=== PATIENT | male | born 1955 | race Caucasian/White ===

== ENCOUNTER 2017-01-30 22:23 | Inpatient (IN) | payer OTHER ==
[~2017-01-30] VITALS: Ht 172.7 cm; Wt 69.0 kg
[2017-01-30 22:25] VITALS: BP 172/143; PULSE 138; RESP 31; O2SAT 100
[2017-01-30] MEDS ORDERED: Albuterol 2.5 mg/3 mL Inhalation Solution NEB ONE ×2 (22:26→22:30)
[2017-01-30] MEDS ORDERED: Ipratropium 0.02% 0.5 mg/2.5 mL Inhalation Solution NEB ONE (22:30)
[2017-01-30] MEDS ORDERED: MethylprednisoLONE Sodium Succinate 62.5 mg/mL 2 mL Inj IVPUSH ONE (22:30)
[2017-01-30] MEDS ORDERED: Magnesium Sulf 2 Gm/50mL Water 2 GM in IV Premix 1 EACH IV ONE (22:30)
--- NOTE | 2017-01-30 22:31 | ED.REPORT ---
HPI-Dyspnea / Wheezing Date of Service Jan 30, 2017 ED Provider: Kenn Dee MD Pt is a 61 year old male with a history of severe COPD, hypertension, hyperlipidemia, and CHF who presents to the ED via EMS complaining of SOB onset 4 days that has progressively worsened tonight. Per EMS, he is 66% on room air and his respiratory rate was 60. He was given 20 mg of ketamine by medics for procedural management. Per his , pt has had cold symptoms for 4 days that has seemed to worsen his breathing. He saw his primary care doctor yesterday, and was started on prednisone and albuterol for his breathing. His states that he quit smoking the other day due to his SOB, and that his SOB tonight has never been this bad before. Pt has never been intubated for his breathing before, but was intubated from a trauma. Nursing Notes Stated Complaint: RESPIRATORY DISTRESS Nursing Notes Reviewed: Yes (Fredio, meds not reconciled) Allergies: Coded Allergies: No Known Allergies (Verified Allergy, Unknown, 07/20/15) No Active Prescriptions or Reported Meds General Time Seen by MD: 22:25 Chief Complaint Shortness of breath Hx Obtained From: Patient, Spouse, EMS Arrived By: Ambulance Sudden in Onset?: No Onset Occurred: 4 days ago Symptom Duration: Constant Quality: Painful Severity: Current: Severe Severity: Maximum: Severe Context Related History: Reports: COPD, Congestive heart failure Recent Healthcare: Recent doctor visit Similar Sx Previous: Yes Past Medical History Past Medical History Bronchitits h/o Acute respiratory failure Hyperglycemia, without history of diabetes. 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 Ambulatory Status Independent Review of Systems Unable to Obtain ROS Patient condition, Mental status Physical Exam Initial Vital Signs Vital Signs (First) Date Time Temp Pulse Resp B/P Pulse Ox O2 Delivery O2 Flow Rate FiO2 01/30/17 22:25 36.7 138 31 172/143 100 Room Air Initial VS: Reviewed, Vital signs abnormal Head / Eyes: Atraumatic, Normocephalic Abdomen / GI: Soft, Non-tender Extremities: Vascular intact, Neuro intact, No swelling, No tenderness Neurologic: Nonfocal General/Constitutional: Awake Given ketamine for procedural management Neck: Supple, Full range of motion Respiratory / Chest: Atraumatic Severe respiratory distress Severe bronchospasms Severe retractions Cardiovascular: Profoundly tachycardic Strong bounding pulses Skin: Warm, Dry Slightly mottled on presence to ED Diaphoretic Interpretation & Diagnostics Blood Gas Results on 01/30/17 on 22:31: ph: 7.154 pCO2: 77 pO2: 210 cHCO3: 26.9 Lab Results Interpretation Result Diagram: 01/30/17223301/30/172233 Test 01/30/17 22:34 White Blood Count 22.2th/mm3 (3.8-10.1) Red Blood Count 5.67mil/mm3 (4.40-5.80) Hemoglobin 17.8g/dL (13.8-17.2) Hematocrit 52.7% (41.0-50.0) Mean Corpuscular Volume 92.9fL (81-100) Mean Corpuscular Hemoglobin 31.4pg (27.0-35.0) Mean Corpuscular Hemoglobin Concent 33.8% (32.0-37.0) Red Cell Distribution Width 14.6% (12.3-15.4) Platelet Count 362bil/L (150-400) Neutrophils (%) (Auto) 75.5% (40-74) Lymphocytes (%) (Auto) 14.7% (14-46) Monocytes (%) (Auto) 9.0% (4-12) Eosinophils (%) (Auto) 0.3% (0-5) Basophils (%) (Auto) 0.2% (0-3) Sodium Level 136mEq/L (134-144) Potassium Level 5.6mEq/L (3.5-5.2) Chloride Level 94mEq/L (97-108) Carbon Dioxide Level 24mmol/L (18-29) Blood Urea Nitrogen 29mg/dL (8-27) Creatinine 1.28mg/dL (0.76-1.27) Estimat Glomerular Filtration Rate 61mL/min (>59) Glucose Level 212mg/dL (60-99) Lactic Acid Level 2.6mmol/L (0.4-2.0) Calcium Level 9.4mg/dL (8.5-10.1) Magnesium Level 2.2mg/dL (1.6-2.6) Total Bilirubin 0.3mg/dL (0.0-1.2) Aspartate Amino Transf (AST/SGOT) 31U/L (0-50) Alanine Aminotransferase (ALT/SGPT) 21U/L (0-44) Alkaline Phosphatase 102U/L (25-160) Troponin T 0.010ug/L (0.0-0.011) Pro-B-Type Natriuretic Peptide 526.5pg/mL (0-210) Total Protein 8.2g/dL (6.4-8.4) Albumin 4.2g/dL (3.4-5.0) Lab Results Interpretation: CBC severe leukocytosis, polycythemia secondary hypoxia/smoking CMP trace hyperkalemia, mild renal insufficiency, mild hyperglycemia-patient started on steroids yesterday Lactic acid elevated Blood cultures 2 pending Troponin negative ECG Interpretation ECG Interpretation: Sinus tachycardia, rate 129 No ischemic changes LVH with strain Unchanged from previous on 01/30/17 Time: 22:37 Interpreted by: ED physician X-Ray Chest Interpretation Chest Xray Interpretation: Right upper lobe pneumonia or mass, new compared to previous chest x-ray. Although a previous chest CT scan from 2014 mentions a right upper lobe nodule. View: Portable, 1 view Interpretation / Wet Read by: Wet read ED physician Re-Eval/Medical Decision Med Decision/Clinical Course This is a 61-year-old male presents in severe respiratory distress by EMS. Initial history by EMS alone. The then provided additional history, and the patient ultimately did clinically improve enough to add history. Patient with a history of COPD and one prior admission for heart BiPAP support couple years ago. He has been a heavy smoker, and developed respiratory infection symptoms about 4 days ago seen at the [facility] where he receives his care and was given prescription for prednisone yesterday which she started. However today became increasingly short of breath, the point the medics were called. On arrival medics report is O2 sat was 66% and in severe distress. He is agitated and combative and required ketamine to medical management application of monitor symptoms. He received bag valve ventilation in the field, with supplemental O2 sats improved into the 100 range. The patient arrives with severe retractions, satting 1%, but still critically ill and requiring bag valve support. He has profound bronchospasm, poor air movement, no retractions. IM epi 0.5 mg was administered on arrival with response. He is placed in transition of BiPAP, with aggressive albuterol nebulizer and Atrovent support. He received empiric steroids and magnesium. And he responded to therapy dramatically, with marked improvement. On reevaluation he is a late alert, his respiratory distress is markedly improved, he remains on BiPAP, but is doing markedly better and no longer at the present dose of requiring intubation. His initial blood gas revealed a marked hypercapnic acute respiratory failure. Chest x-ray reveals right upper lobe pneumonia (malignancy remains in the differential given this is the location of the reported previous nodule, although the history is described in the family is reassuring on this account) and given the findings consistent with sepsis, severe distress and the need for ICU admission the patient's been covered the [facility] sepsis pneumonia protocol. The [facility] has no beds available tonight, so the patient's been admitted to the ICU and the case is discussed with hospitalist. Source of Hx: Old records, EMS Re-Evaluation/Progress #1: Time of Eval: 22:35 Re-Evaluation/Progress Note: Patient rechecked. Spoke with patient's and gained more insight on patient's past medical history and present illness. Re-Evaluation/Progress #2: Time of Eval: 22:44 Re-Evaluation/Progress Note: Patient rechecked. Vital signs reviewed. Re-Evaluation/Progress #3: Time of Eval: 23:05 Patient Status: Condition improved Re-Evaluation/Progress Note: Patient rechecked. Patient states that he has had a subjective fever over the past few days. Discussed x-ray results. Re-Evaluation/Progress #4: Time of Eval: 23:12 Patient Status: Condition improved Re-Evaluation/Progress Note: Patient rechecked. Discussed lab work results and plan for admission. Patient understands and agrees with plan. All questions addressed. Consultation #1: Referral / Consult Name: Elizabeth Tello DO Consulted With: Hospitalist Call Returned at: 23:31 Bass Singer: Will see patient, Agrees with plan, Accepts admit Note: Discussed patient's case with hospitalist, Dr. Tello. She accepts admission. Consultation #2: Note: Please note that the transfer form was faxed to the [facility], and the case was discussed with the AOD at the [facility]. They indicate they have no CCU or beds available. Differential Diagnosis: Positive: COPD exacerbation, Pneumonia, Respiratory failure, Negative: Acute coronary syndrome, Foreign body airway, Hypertensive emergency, Hyperventilation Counseled Regarding: Diagnosis, Lab results, Need for admission Discharge & Departure Impression: Primary Impression: Acute respiratory failure Respiratory failure complication: hypoxia and hypercapnia Qualified Code: J96.01 - Acute respiratory failure with hypoxia Additional Impressions: COPD exacerbation Right upper lobe pneumonia Pneumonia type: due to unspecified organism Qualified Code: J18.1 - Lobar pneumonia, unspecified organism Disposition: ADMITTED TO HOSPITAL Discharge Condition All VS Reviewed: Yes Condition: Stable Referrals: Rosalee Guthrie MD Crit Care Except Billable Proc Time Spent: 30-74 minutes Services Performed: Patient management by me, Time spent at bedside, Reviewing test results, Reviewing imaging, Discussing patient care, Documentation in record, Time with fam/surrogate Scribe Attestation Portions of this note were transcribed by Krista Vargas. I, Dr. Dee, personally performed the history, physical exam and medical decision-making; I reviewed and confirmed the accuracy of the information in the transcribed note. copies to: Rosalee Guthrie MD, Matthew F MD Jan 30, 2017 22:31 Krista Vargas Jan 30, 2017 22:41
--- NOTE | 2017-01-30 22:34 | ABG ---
DateTimeAnalyzed 22:32:20 -_ pH ____7.154 - 7.350 7.450 pCO2 ___76.5__ -mmHg 35.0 45.0 pO2 210 -mmHg 80.0 100 HCO3- ___26.9__ -mmol/L 22.0 26.0 ABE ___-3.1__ -mmol/L -2.0 2.0 tHb ___17.3__ -g/dL 12.0 18.0 O2Hb ___94.6__ -% COHb ____5.5__ -% 1.5 MetHb ____0.0__ -% 0.4 1.5 sO2 __100.0__ -% 95.0 AaDpO2 __136.0__ -mmHg FIO2 ___60.0__ -% Drawn By MK - Oxygen Device 1 bagged at 100% - Notified Whom __Russell - K+ ____5.3__ -mmol/L 3.5 5.0 Kolton test _Positive -
[2017-01-30 22:40] VITALS: BP 158/101; PULSE 132; RESP 30; O2SAT 99
[2017-01-30 22:40] LABS: BASOPHILS % (AUTO) 0.2 % (0-3); EOSINOPHILS % (AUTO) 0.3 % (0-5); Mean Corpuscular Hemoglobin 31.4 pg (27.0-35.0); Mean Corpuscular Volume 92.9 fL (81-100); NEUTROPHILS % (AUTO) 75.5 % (40-74); Platelet Count 362 bil/L (150-400)
[2017-01-30] MEDS ORDERED: levoFLOXacin Inj 750 MG in IV Premix 1 EACH IV ONE (22:45)
[2017-01-30] MEDS ORDERED: Vancomycin Dose per Pharmacist XX ONE (22:45)
[2017-01-30] MEDS ORDERED: Piperacillin-Tazo 3.375 Gm Inj 3.375 GM in Dextrose 5% Minibag Plus 50 ML IV ONE (22:45)
[2017-01-30 22:54] LABS: TROPONIN T 0.01 ug/L (0.0-0.011)
[2017-01-30 22:55] VITALS: BP 126/60; PULSE 127; RESP 27; O2SAT 96
[2017-01-30] MEDS ORDERED: Vancomycin Inj 1,250 MG in 0.9% Sodium Chloride 250 ML IV ONE (22:55)
[2017-01-30 23:05] LABS: Magnesium 2.2 mg/dL (1.6-2.6)
[2017-01-30 23:10] VITALS: BP 134/77; PULSE 113; RESP 25; O2SAT 96
[2017-01-30 23:25] VITALS: BP 104/69; PULSE 112; RESP 29; O2SAT 96
[2017-01-31] VITALS (13 sets, daily range): BP systolic 112–166; BP diastolic 73–92; PULSE 92–110; RESP 20–27; O2SAT 92–98
--- NOTE | 2017-01-31 00:26 | ABG ---
DateTimeAnalyzed 00:22:48 -_ pH ____7.323 - 7.350 7.450 pCO2 ___50.4__ -mmHg 35.0 45.0 pO2 ___94.8__ -mmHg 80.0 100 HCO3- ___26.1__ -mmol/L 22.0 26.0 ABE ___-0.4__ -mmol/L -2.0 2.0 tHb ___16.2__ -g/dL 12.0 18.0 O2Hb ___93.1__ -% COHb ____4.0__ -% 1.5 MetHb ____0.0__ -% 0.4 1.5 sO2 ___96.7__ -% 95.0 AaDpO2 ___62.8__ -mmHg FIO2 ___30.0__ -% CPAP ___20.0__ -cmH2O PEEP ___10.0__ -cmH2O Set_RR 14 -b/min Drawn By MK - Date/Time Notified____ 00:25:00 -_ Spontaneous_RR 30 -b/min Oxygen Device 1 ____BIPAP - Notified By MK - K+ ____4.9__ -mmol/L 3.5 5.0 Kolton test _Positive -
[2017-01-31] MEDS ORDERED: HYDR12.5 PO (00:50)
[2017-01-31] MEDS ORDERED: PRE10 (00:50)
[2017-01-31] MEDS ORDERED: SIMV20TA4 PO (00:50)
[2017-01-31] MEDS ORDERED: IPRA4AER INHALATION (00:50)
[2017-01-31] MEDS ORDERED: ALBU8.5H2 INHALATION (00:50)
[2017-01-31] MEDS ORDERED: LISI-567 PO (00:50)
[2017-01-31] MEDS: Heparin 5,000 Unit/mL Inj SUBQ SCH ×3 (01:10→16:23)
[2017-01-31] MEDS ORDERED: 0.9% Sodium Chloride 1,000 ML IV SCH (01:45)
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
[2017-01-31] MEDS: 0.9% Sodium Chloride 1,000 ML IV SCH ×3 (02:03→16:00)
[2017-01-31] MEDS: MethylprednisoLONE Sodium Succinate 62.5 mg/mL 2 mL Inj IVPUSH SCH ×3 (02:05→16:23)
[2017-01-31 06:12] LABS: BASOPHILS % (AUTO) 0.1 % (0-3); EOSINOPHILS % (AUTO) 0.1 % (0-5); MONOCYTES % (AUTO) 0.8 % (4-12); Mean Corpuscular Hemoglobin 31.1 pg (27.0-35.0); Mean Corpuscular Volume 93.4 fL (81-100); NEUTROPHILS % (AUTO) 95.9 % (40-74); Platelet Count 247 bil/L (150-400)
[2017-01-31 06:19] LABS: APPEARANCE,URINE CLEAR (CLEAR,HAZY); COLOR,URINE YELLOW (YELLOW); PH,URINE 5.5 (5.0-8.0)
[2017-01-31 06:20] LABS: OCCULT BLOOD,URINE MODERATE (NEGATIVE); UROBILINOGEN,URINE NORMAL (NORMAL)
--- NOTE | 2017-01-31 06:41 | NUR ---
CCU Admit note Admitted patient from ED @ 0013 for respiratory failure, pnm, copd. Arrived on bipap with fio2 30%, I/E 20/10, sp02>92%, dyspneic at rest and on exertion, RR 27-30, NS 200cc/hr x 1L. fingerstick BG 149, pt hungry, ok to have jello as tolerated, off bipap and placed on NC @ 3L while eating, increased sob after 3-4 mins, re-placed bipap. admit K+ 5.6, down to 4.9, lactic acid 2.6 down to 1.6. last abg improved w/ ph 7.32, c02 50, p02 95 hc03 26, I/E /. Mrsa nasal swab, viral swab, ua and sputum sent to lab.
[2017-01-31] MEDS: Albuterol-Ipratropium 3 mL Inhalation Solution NEB SCH ×4 (08:00→20:56)
[2017-01-31] MEDS ORDERED: predniSONE 20 mg Tablet PO SCH (08:30)
[2017-01-31] MEDS ORDERED: Piperacillin-Tazo 3.375 Gm Inj 3.375 GM in Dextrose 5% Minibag Plus 50 ML IV SCH (08:30)
[2017-01-31] MEDS ORDERED: Albuterol-Ipratropium 3 mL Inhalation Solution NEB SCH ×2 (08:30)
--- NOTE | 2017-01-31 08:35 | ABG ---
DateTimeAnalyzed 08:26:00 -_ pH ____7.354 - 7.350 7.450 pCO2 ___47.7__ -mmHg 35.0 45.0 pO2 ___83.9__ -mmHg 80.0 100 HCO3- ___25.9__ -mmol/L 22.0 26.0 ABE ____0.2__ -mmol/L -2.0 2.0 tHb ___16.0__ -g/dL 12.0 18.0 O2Hb ___92.4__ -% COHb ____2.1__ -% 1.5 MetHb ____1.2__ -% 0.4 1.5 sO2 ___95.5__ -% 95.0 FIO2 ___30.0__ -% Pressure_Support ___18.0__ -cmH2O CPAP ____8.0__ -cmH2O Set_RR ___14.0__ -b/min Drawn By gj - Date/Time Notified____ 08:35:00 -_ Spontaneous_RR ___20.0__ -b/min Oxygen Device 1 ____BIPAP - Notified Whom ___DR. YANCHUK - B 760 -mmHg tO2 ___20.8__ -Vol% Kolton test _Positive -
--- NOTE | 2017-01-31 09:29 | DRSVH ---
PROCEDURE: X-RAY CHEST ONE VIEW, PORTABLE ([id number]) INDICATIONS: SHORT OF BREATH TECHNIQUE: One view of the chest was acquired. COMPARISON: [facility], CR, XR CHEST 1VW (PORTABLE), 01/31/2017, 5:13[facility], 07/20/2015, 13:49. [facility], CR, CHEST 1VW (PORTABLE), 08/16/19 14, 9:41. FINDINGS: Surgical changes and devices: None. Lungs and pleura: No pleural effusions or pneumothorax. Lungs are abnormal with severe COPD, and pu lmonary hyperexpansion causing blunting of the costophrenic sulci bilaterally. There also is a worri some finding at the right apex, superimposed upon by some form of probable external bracing device, b ut an appearance worrisome for representing malignancy at the right apex, versus right upper lobe pne umonia. Mediastinum: Mediastinal contours appear normal. Heart size is normal. Bones and chest wall: No suspicious bony lesions. Overlying soft tissues appear unremarkable. IMPRESSION: Severe COPD, possible malignant mass right upper lobe versus focal pneumonia in that area . It is possible that this represents result of superimposition of the external structure and right upper lung interstitial prominence but followup PA and lateral chest plain films are recommended to d etermine whether a true mass lesion could be present in that area. Findings discussed this morning w ith the emergency room physician covering for the prior emergency room physician, and followup chest plain films are anticipated. CT may become necessary. Dictated by: Michael Perales M.D. on 01/31/2017 at 9:23 Approved by: Michael Perales M.D. on 01/31/2017 at 9:27
[2017-01-31] MEDS ORDERED: 0.9% Sodium Chloride 1,000 ML IV ONE ×2 (11:35→16:55)
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
--- NOTE | 2017-01-31 13:18 | DRSVH ---
PROCEDURE: X-RAY CHEST ONE VIEW, PORTABLE ([id number]) INDICATIONS: possible Right upper lobe mass TECHNIQUE: One view of the chest was acquired. COMPARISON: [facility], CR, XR CHEST 1VW (PORTABLE), 01/31/2017, 5:13. [facility], CR, XR CHEST 1VW (PORTABLE), 01/30/2017, 22:24. FINDINGS: Surgical changes and devices: None. Lungs and pleura: No pleural effusions or pneumothorax. Lungs are better visualized, in this patien t who had recent chest plain film evaluation raising concern for right upper lung mass. The current study shows removal of all breathing assist devices from over the chest. Chronic interstitial promin ence is present, greatest at the upper lobes, but no definite lung mass is found. Mediastinum: Mediastinal contours appear normal. Heart size is normal. Bones and chest wall: No suspicious bony lesions. Overlying soft tissues appear unremarkable. IMPRESSION: The concern for possible right upper lobe lung mass near the apex from chest plain films performed at 20:22 last evening has been resolved, no evidence for lung mass in the area that had bee n superimposed upon by a breathing assist device in that area. Chronic interstitial prominence, no d efinite acute disease. Dictated by: Michael Perales M.D. on 01/31/2017 at 12:53 Approved by: Michael Perales M.D. on 01/31/2017 at 13:16
--- NOTE | 2017-01-31 14:23 | PCM.PNMED ---
Subjective Date of Service Jan 31, 2017 Subjective Sam Stevenson is a 61-year-old man with past medical history significant for severe COPD, hypertension, hyperlipidemia and heart failure who presented to the [facility] emergency department today via EMS due to severe shortness of breath started 4 days ago prior to admission. Patient was seen and examined by me today. This morning, patient states his shortness of breath has improved greatly since admission. He notes that he has a mild headache and that he is hungry. Given his improvement in respiratory status, the plan was to remove BiPap and place patient on supplemental oxygen to allow him to eat. Patient is alert, awake and oriented. He denies confusion, visual changes, chest pain, nausea, vomiting, abdominal pain and dysuria. Overnight, patient was admitted to the CCU. He arrived on Bi-pap with FiO2 of 30 %. He received NS at 200 MLS/HR. His potassium was elevated at 5.6 and this has trended down to 4.9. In addition, lactic acid trended down overnight to 1.6. Mrsa nasal swab, viral swab, ua and sputum sent to lab. Exam Vital Signs Vital Sign - Last Date Time Temp Pulse Resp B/P Pulse Ox O2 Delivery O2 Flow Rate FiO2 01/31/17 05:05 86 24 132/85 94 30 01/31/17 04:05 36.4 BiPAP Intake and Output 01/30/17 01/30/17 01/31/17 Cumulative From/Thru 15:00 23:00 07:00 01/30/17 22:25 - 01/31/17 05:44 Intake Total 1225 ml 1225 ml Output Total 200 ml 200 ml Balance 1025 ml 1025 ml Intake Oral 118 ml 118 ml IV Total 1107 ml 1107 ml Output Urine Total 200 ml 200 ml # Bowel Movements 0 0 Exam General: Patient is sitting upright on bed, AAOX3,mild acute distress, cooperative and appropriately interactive HEENT: head normocephalic and atraumatic, PERRLA, EOMI, no scleral icterus, noninjected conjunctiva, BiPap mask on face Neck: neck supple, non-tender, no lymphadenopathy, trachea midline, no JVD CV: tachycardic with regular rhythm, s1 and s2 heard, radial pulses 2+ and equal bilaterally, no rubs murmurs or gallops, no edema Lungs: reduced breath sounds bilaterally with scattered wheezes, increased work of breathing and some use of accessory muscles, patient is evidently barrel- chested Abdomen: normoactive bowel sounds on 4Q, soft, non-distended, non-tender to palpation, no organomegally, Skin: warm and dry, skin tenting on exam Musculoskeletal: UE and LE strength bilaterally, full ROM bilaterally Neuro: Grossly neurologically intact, cranial nerves II through XII intact, no dyskinesia, dysmetria, or dysdiadochokinesia noted, sensation intact in extremities Psych: Normal mood and affect IVs and Medications IV Fluids IV NS rate 100 MLS/HR Medications Reviewed: Medications were reviewed in detail Lab and Diagnostics Laboratory Tests Test 01/30/17 22:27 01/30/17 22:34 01/31/17 01:20 01/31/17 01:36 Urine Color Yellow (YELLOW) Urine Appearance Clear (CLEAR,HAZY) Urine pH 5.5 (5.0-8.0) Urine Specific [place] 1.026 (1.003-1.035) Urine Protein 300mg/dL (NEG,TRACE) Urine Glucose (UA) Negativemg/dL (NEGATIVE) Urine Ketones Negativemg/dL (NEGATIVE) Urine Occult Blood Moderate (NEGATIVE) Urine Nitrite Negative (NEGATIVE) Urine Bilirubin Negative (NEGATIVE) Urine Urobilinogen Normalmg/dL (NORMAL) Urine Leukocyte Esterase Negative (NEGATIVE) Urine RBC 11-50/hpf (0-2) Urine WBC 0-5/hpf (0-5) Urine Epithelial Cells Occasional/hpf (NONE-MOD) Urine Crystals None seen (NONE SEEN) Urine Bacteria None/hpf (NONE-FEW) Urine Hyaline Casts None/lpf (NONE) Urine Granular Casts Occasional (NONE SEEN) Urine Waxy Casts None seen (NONE SEEN) Urine Red Blood Cell Casts None seen (NONE SEEN) Urine White Blood Cell Casts None seen (NONE SEEN) Urine Mucus None seen (None Seen) Urine Trichomonas None seen (NONE SEEN) Urine Yeast None (NONE SEEN) Urinalysis Comment None Urine Culture Reflexed Not indicated White Blood Count 22.2th/mm3 (3.8-10.1) Red Blood Count 5.67mil/mm3 (4.40-5.80) Hemoglobin 17.8g/dL (13.8-17.2) Hematocrit 52.7% (41.0-50.0) Mean Corpuscular Volume 92.9fL (81-100) Mean Corpuscular Hemoglobin 31.4pg (27.0-35.0) Mean Corpuscular Hemoglobin Concent 33.8% (32.0-37.0) Red Cell Distribution Width 14.6% (12.3-15.4) Platelet Count 362bil/L (150-400) Neutrophils (%) (Auto) 75.5% (40-74) Lymphocytes (%) (Auto) 14.7% (14-46) Monocytes (%) (Auto) 9.0% (4-12) Eosinophils (%) (Auto) 0.3% (0-5) Basophils (%) (Auto) 0.2% (0-3) Sodium Level 136mEq/L (134-144) 135mEq/L (134-144) Potassium Level 5.6mEq/L (3.5-5.2) 4.9mEq/L (3.5-5.2) Chloride Level 94mEq/L (97-108) 97mEq/L (97-108) Carbon Dioxide Level 24mmol/L (18-29) 24mmol/L (18-29) Blood Urea Nitrogen 29mg/dL (8-27) 33mg/dL (8-27) Creatinine 1.28mg/dL (0.76-1.27) 1.40mg/dL (0.76-1.27) Estimat Glomerular Filtration Rate 61mL/min (>59) 55mL/min (>59) Glucose Level 212mg/dL (60-99) 193mg/dL (60-99) Lactic Acid Level 2.6mmol/L (0.4-2.0) 1.6mmol/L (0.4-2.0) Calcium Level 9.4mg/dL (8.5-10.1) 9.1mg/dL (8.5-10.1) Magnesium Level 2.2mg/dL (1.6-2.6) Total Bilirubin 0.3mg/dL (0.0-1.2) Aspartate Amino Transf (AST/SGOT) 31U/L (0-50) Alanine Aminotransferase (ALT/SGPT) 21U/L (0-44) Alkaline Phosphatase 102U/L (25-160) Troponin T 0.010ug/L (0.0-0.011) Pro-B-Type Natriuretic Peptide 526.5pg/mL (0-210) Total Protein 8.2g/dL (6.4-8.4) Albumin 4.2g/dL (3.4-5.0) Procalcitonin 0.13ng/mL (0.00-0.08) Test 01/31/17 05:50 White Blood Count 14.0th/mm3 (3.8-10.1) Red Blood Count 5.02mil/mm3 (4.40-5.80) Hemoglobin 15.6g/dL (13.8-17.2) Hematocrit 46.9% (41.0-50.0) Mean Corpuscular Volume 93.4fL (81-100) Mean Corpuscular Hemoglobin 31.1pg (27.0-35.0) Mean Corpuscular Hemoglobin Concent 33.3% (32.0-37.0) Red Cell Distribution Width 14.5% (12.3-15.4) Platelet Count 247bil/L (150-400) Neutrophils (%) (Auto) 95.9% (40-74) Lymphocytes (%) (Auto) 2.9% (14-46) Monocytes (%) (Auto) 0.8% (4-12) Eosinophils (%) (Auto) 0.1% (0-5) Basophils (%) (Auto) 0.1% (0-3) Microbiology 01/30/17 Blood Culture, Received Pending Result Diagram: 01/31/17 0550 01/31/17 0120 X-Rays, CTs and MRIs IMPRESSION: Severe COPD, possible malignant mass right upper lobe versus focal pneumonia in that area. It is possible that this represents result of superimposition of the external structure and right upper lung interstitial prominence but followup PA and lateral chest plain films are recommended to determine whether a true mass lesion could be present in that area. Findings discussed this morning with the emergency room physician covering for the prior emergency room physician, and followup chest plain films are anticipated. CT may become necessary. Dictated by: Michael Perales M.D. on 01/31/2017 at 9:23 12-lead ECG Sinus tachycardia, possible left atrial enlargement, left ventricular hypertrophy Additional Diagnostics DateTimeAnalyzed 22:32:20 -_ pH ____7.154 - 7.350 7.450 pCO2 ___76.5__ -mmHg 35.0 45.0 pO2 210 -mmHg 80.0 100 HCO3- ___26.9__ -mmol/L 22.0 26.0 ABE ___-3.1__ -mmol/L -2.0 2.0 tHb ___17.3__ -g/dL 12.0 18.0 O2Hb ___94.6__ -% COHb ____5.5__ -% 1.5 MetHb ____0.0__ -% 0.4 1.5 sO2 __100.0__ -% 95.0 Assessment & Plan Sam Stevenson is a 61-year-old man with past medical history significant for severe COPD, hypertension, hyperlipidemia and heart failure who presented to the [facility] emergency department today via EMS due to severe shortness of breath started 4 days ago. Acute hypercapnic respiratory failure secondary to COPD exacerbation, present on admission, active -Possible etiology includes community-acquired pneumonia versus viral pneumonia -We will obtain Legionella antigen, strep pneumo antigen, respiratory viral PCR , blood cultures, sputum cultures. Pending -Procalcitonin is unremarkable at 0.13, however in multiple previous cases it has been noted that even in septic patients the procalcitonin has lagged behind , will repeat in a.m. -Patient was treated presumably as severe community acquired pneumonia with Levaquin and Zosyn. Patient has already received 1 dose of vancomycin. MRSA swab negative. Discontinue vancomycin -Discontinue Levaquin and Zosyn and switch to Azithromycin 500 mg daily and ceftriaxone 2 g q12 per recommendations of CCU team -Repeat ABG significantly improved -CXR shows Severe COPD, possible malignant mass right upper lobe versus focal pneumonia in that area. Per recommendations of radiology, repeat CXR -Continue BiPAP, will wean down IPAP as patient is able to tolerate -At this point patient has improved and there does not seem to be an imminent threat of intubation however patient is agreeable with intubation should it be necessary. -DuoNeb every 4 hrs while awake, albuterol every 2 when necessary shortness of breath -Solu-Medrol 125 mg was given q6 but we have titrate to 80 mg every 8 hours IV while patient is in severe respiratory distress, may be titrated to by mouth medication once his respiratory status improves Sepsis, present on admission, active -Leukocytosis, tachycardia, acute renal failure, mild hyperlactatemia with likely viral versus arterial pneumonia as source -We will continue to treat with antibiotics as above. -01/31/17 WBC trended down to 14.0, Procalcitonin increased to 1.27 -Recheck lactic acid shows that this has normalized -Gentle rehydration was initiated given patient's history of CHF with uncertain EF. Patient currently on NS IV at 100 mls/hr Acute kidney injury, present on admission, active -Most recent baseline available is a creatinine of 0.88 in 2016. -Likely prerenal azotemia given patient's dehydration on exam. -IVF, recheck BMP in the morning Mild hyperkalemia, present on admission, resolved -Potassium on admit was 5.6. Decreased to 4.3 Hyperglycemia secondary to steroid use -Every 6 Accu-Chek -We will initiate insulin if the patient's blood glucose continues to be above 180 Tobacco use -Nicotine patch offered Chronic issues: Congestive heart failure, uncertain type, not in exacerbation -Request records from [place] regarding most recent echocardiogram Hypertension -Hold BP meds for now -Blood pressure stable Hyperlipidemia -Continue statin CODE STATUS: Full code Disposition: Patient's respiratory status has been improving but he continued to receive treatment for acute hypercapnic respiratory failure secondary to COPD exacerbation. We will continue with current antibiotic regimen and await cultures and viral PCR. Continue with Duonebs q4hrs, albuterol q2 hrs prn and methylprednisolone. Pain Evaluation: Adequate Pain Control VTE Mechanical Devices: Intermittant Pneumatic CD Resuscitation Status: CPR: Attempt Resuscitation Time spent 35 minutes Attending Statement I have seen and evaluated patient at bedside in addition to directly supervising care provided by resident physician Dr. Mcallister on 01/31/2017. I agree with above documentation. Ashley Mcallister DO Jan 31, 2017 06:55 Alfredo Mosher DO Jan 31, 2017 21:37
[2017-01-31] MEDS: cefTRIAXone Inj 2,000 MG in Dextrose 5% Minibag Plus 50 ML IV SCH (15:59)
--- NOTE | 2017-01-31 17:25 | NUR ---
Social Work: Initial Assessment/Multidisciplinary Rounds D: Per EMR review, patient is a 61 year old male admitted for respiratory failure COPD pneumonia. [facility] with no LTC or VA benefits. PCP is Mary Ann Weir PA-C. NOK is Ana Luisa Stevenson, , . Advanced directives info provided. No RA Score Available at this time. Pt discussed in multidisciplinary rounds; the patient is not medically stable at this time and remains in CCU status. Pt is a/o and appropriate for CM assessment. PROGRAM OFFICER met with the patient at bedside. Sw role explained, contact information and d/c planning packet provided. Pt lives in [place] with his . Patient is I at baseline and works as a truck rental service attendant for [employer]. patient uses no DME, is I with mobility and ADLs. No HH or assisted history. Patient lives in a single story home with 3 steps to enter. Patient identifies no concerns about discharge home and states his will transport. patient receptive to discharge planning if needs arise. A: Pt who is I at baseline. P: Anticipate patient to discharge home via POV once medically stable; PROGRAM OFFICER to continue to follow to assess for unmet discharge needs. ARMANI Her Addendum: 01/31/17 at 1730 by MC HARDWICK Amended: Links added.
--- NOTE | 2017-01-31 17:49 | NUR ---
respiratory status/hydration/anxiety/HTN/plan followup abg this am looked very good Dr gonzalez of pulmonology ok's trial on nasal canula and allow pt to eat. Pt tolerated 2L NC well for 3 hours and then started becoming more tachyepnic and went back on bipap. Pt came off bipap again for dinner for about an hour and then back on bipap. Pt was thought to be dehydrated and 1 L bolus was given. Urine became more clear and UOP increased after bolus. Pt was frustrated about the food ordering system and while anxious became more hypertensive with SBP 160's. After he got food and calmed down he remained hypertensive in the 140-150's. Plan to continue bipap and steroids.
[2017-01-31] MEDS: fentaNYL-PF 50 mCg/mL 2 mL Inj IVPUSH PRN (20:32)
--- NOTE | 2017-01-31 20:55 | DRSVH ---
PROCEDURE: X-RAY CHEST ONE VIEW, PORTABLE ([id number]) INDICATIONS: Respiratory distress TECHNIQUE: One view of the chest was acquired. COMPARISON: [facility], CR, XR CHEST 2VW, 07/20/2015, 13:49. [facility], CR, XR CHEST 1VW (PORTABLE), 01/30/2017, 22:24. FINDINGS: Surgical changes and devices: None. Lungs and pleura: No pleural effusions or pneumothorax. Lung volumes are increased and diaphragms a re flatten. Interstitium is prominent. Mediastinum: Mediastinal contours appear normal. Heart size is normal. Bones and chest wall: No suspicious bony lesions. Overlying soft tissues appear unremarkable. IMPRESSION: 1. Large lung volumes suggesting COPD and interstitial is prominent similar to prior examination. Ea rly developing pulmonary edema or atypical pneumonia cannot be excluded and clinical correlation is r ecommended. Dictated by: Mejia RODRIGUEZA Interpreted: Sagrario Briceño MD on 01/31/2017 at 8:45 Approved by: Sagrario Briceño M.D. on 01/31/2017 at 20:53
[2017-01-31] MEDS ORDERED: levoFLOXacin Inj 750 MG in IV Premix 1 EACH IV SCH (22:00)
[2017-02-01] VITALS (17 sets, daily range): BP systolic 147–191; BP diastolic 75–110; PULSE 71–92; RESP 22–28; O2SAT 91–96
[2017-02-01] MEDS: MethylprednisoLONE Sodium Succinate 62.5 mg/mL 2 mL Inj IVPUSH SCH ×2 (00:15→08:45)
[2017-02-01] MEDS: Heparin 5,000 Unit/mL Inj SUBQ SCH ×3 (00:15→18:25)
[2017-02-01] MEDS: cefTRIAXone Inj 2,000 MG in Dextrose 5% Minibag Plus 50 ML IV SCH ×3 (00:53→21:52)
[2017-02-01 03:16] LABS: BASOPHILS % (AUTO) 0.1 % (0-3); EOSINOPHILS % (AUTO) 0 % (0-5); MONOCYTES % (AUTO) 2.6 % (4-12); Mean Corpuscular Hemoglobin 31.5 pg (27.0-35.0); Mean Corpuscular Volume 94.5 fL (81-100); NEUTROPHILS % (AUTO) 94.4 % (40-74); Platelet Count 218 bil/L (150-400)
--- NOTE | 2017-02-01 04:32 | ABG ---
DateTimeAnalyzed 04:29:57 -_ pH ____7.387 - 7.350 7.450 pCO2 ___49.6__ -mmHg 35.0 45.0 pO2 ___92.4__ -mmHg 80.0 100 HCO3- ___29.7__ -mmol/L 22.0 26.0 ABE ____4.1__ -mmol/L -2.0 2.0 tHb ___14.8__ -g/dL 12.0 18.0 O2Hb ___95.9__ -% COHb ____1.1__ -% 1.5 MetHb ____0.0__ -% 0.4 1.5 sO2 ___96.7__ -% 95.0 AaDpO2 ___64.7__ -mmHg FIO2 ___30.0__ -% Drawn By AF - Date/Time Notified____ 04:31:00 -_ Oxygen Device 1 ____BIPAP - Notified By AF - K+ ____4.9__ -mmol/L 3.5 5.0 [place] test _Positive -
--- NOTE | 2017-02-01 05:50 | NUR ---
P: dyspnea I: bipap, fentanyl IVP x 1 E: A/O. Mild dyspnea at rest increasing w/ coughing episodes, activity. Denies pain, N/V. Request fentanyl IVP at HS. Pt states helpful for dyspnea and sleep. Denies feeling anxious. After coughing episode increase WOB and sats drop to mid 80s on 2L NC. Return to bipap at 30% effective for increase WOB, dyspnea, and sats. RR rate mid to high 20s. Off bipap x 3 tonight to allow pt to snack on sandwhich at bedside and time away from mask. Tolerates NC well. Tele ST, now SR. BP trending upward. Lisinopril given at HS and lopressor PO given in AM hours per MD order. Voiding via urinal.
--- NOTE | 2017-02-01 06:45 | PCM.PNMED ---
Subjective Date of Service Feb 01, 2017 Subjective Sam Stevenson is a 61-year-old man with past medical history significant for severe COPD, hypertension, hyperlipidemia and heart failure who presented to the [facility] emergency department today via EMS due to severe shortness of breath started 4 days ago. Patient was seen and examined by me this morning. He states that he is doing much better this morning. He notes that he had been off of BiPap for about 3 hours and was able to tolerate breakfast. He continues to have a productive cough with yellow sputum. He thinks that he will be able to ambulate more today. 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 This morning: ABG showed pH of 7.38, pCO2 49.6, pO2 92.4, HCO3 29.7, FIO2 30, BiPAP 15/5. Overnight, patient requested fentanyl because he says that it will be helpful for sleep and dyspnea. There were no other acute events overnight. Exam Vital Signs Vital Sign - Last Date Time Temp Pulse Resp B/P Pulse Ox O2 Delivery O2 Flow Rate FiO2 02/01/17 04:34 76 24 191/97 96 30 02/01/17 04:30 Supplement Oxygen 02/01/17 04:30 36.5 02/01/17 00:30 2.00 Intake and Output 01/31/17 01/31/17 02/01/17 Cumulative From/Thru 15:00 23:00 07:00 01/30/17 22:25 - 02/01/17 06:12 Intake Total 2505 ml 1185 ml 4915 ml Output Total 850 ml 1125 ml 2175 ml Balance 1655 ml 60 ml 2740 ml Intake Oral 800 ml 1120 ml 2038 ml IV Total 1705 ml 65 ml 2877 ml Output Urine Total 850 ml 1125 ml 2175 ml # Bowel Movements 0 0 0 Exam General: Patient is sitting upright on bed, AAOX3,mild acute distress, cooperative and appropriately interactive HEENT: head normocephalic and atraumatic, PERRLA, EOMI, no scleral icterus, noninjected conjunctiva, Oxymask on face Neck: neck supple, non-tender, no lymphadenopathy, trachea midline, no JVD CV: tachycardic with regular rhythm, s1 and s2 heard, radial pulses 2+ and equal bilaterally, no rubs murmurs or gallops, no edema Lungs: reduced breath sounds bilaterally with scattered wheezes, increased work of breathing and some use of accessory muscles, patient is evidently barrel- chested Abdomen: normoactive bowel sounds on 4Q, soft, non-distended, non-tender to palpation, no organomegally, Skin: warm and dry, skin tenting on exam Musculoskeletal: UE and LE strength bilaterally, full ROM bilaterally Neuro: Grossly neurologically intact, cranial nerves II through XII intact, no dyskinesia, dysmetria, or dysdiadochokinesia noted, sensation intact in extremities Psych: Normal mood and affect IVs and Medications Medications Reviewed: Medications were reviewed in detail Lab and Diagnostics Laboratory Tests Test 02/01/17 02:58 White Blood Count 19.6th/mm3 (3.8-10.1) Red Blood Count 4.76mil/mm3 (4.40-5.80) Hemoglobin 15.0g/dL (13.8-17.2) Hematocrit 45.0% (41.0-50.0) Mean Corpuscular Volume 94.5fL (81-100) Mean Corpuscular Hemoglobin 31.5pg (27.0-35.0) Mean Corpuscular Hemoglobin Concent 33.3% (32.0-37.0) Red Cell Distribution Width 14.6% (12.3-15.4) Platelet Count 218bil/L (150-400) Neutrophils (%) (Auto) 94.4% (40-74) Lymphocytes (%) (Auto) 2.5% (14-46) Monocytes (%) (Auto) 2.6% (4-12) Eosinophils (%) (Auto) 0% (0-5) Basophils (%) (Auto) 0.1% (0-3) Sodium Level 135mEq/L (134-144) Potassium Level 4.5mEq/L (3.5-5.2) Chloride Level 99mEq/L (97-108) Carbon Dioxide Level 25mmol/L (18-29) Blood Urea Nitrogen 43mg/dL (8-27) Creatinine 1.81mg/dL (0.76-1.27) Estimat Glomerular Filtration Rate 41mL/min (>59) Glucose Level 179mg/dL (60-99) Lactic Acid Level 1.5mmol/L (0.4-2.0) Calcium Level 8.9mg/dL (8.5-10.1) Total Bilirubin 0.2mg/dL (0.0-1.2) Aspartate Amino Transf (AST/SGOT) 47U/L (0-50) Alanine Aminotransferase (ALT/SGPT) 27U/L (0-44) Alkaline Phosphatase 69U/L (25-160) Total Protein 6.5g/dL (6.4-8.4) Albumin 3.3g/dL (3.4-5.0) Procalcitonin 1.16ng/mL (0.00-0.08) Microbiology 01/30/17 Blood Culture - Preliminary, Resulted NO GROWTH AFTER 24 HOURS 01/31/17 MRSA (PCR) - Final, Complete 01/31/17 Streptococcus pneumoniae Ag Screen - Final, Complete 01/31/17 Sputum Quality Screen - Final, Resulted 01/31/17 Sputum Culture, Resulted Pending Result Diagram: 02/01/178 02/01/17257 Microbiology Postive for Rhinovirus/Enterovirus X-Rays, CTs and MRIs PROCEDURE: X-RAY CHEST ONE VIEW, PORTABLE ([id number]) IMPRESSION: The concern for possible right upper lobe lung mass near the apex from chest plain films performed at 20:22 last evening has been resolved, no evidence for lung mass in the area that had been superimposed upon by a breathing assist device in that area. Chronic interstitial prominence, no definite acute disease. Dictated by: Michael Perales M.D. on 01/31/2017 at 12:53 Chest Xray IMPRESSION: Severe COPD, possible malignant mass right upper lobe versus focal pneumonia in that area. It is possible that this represents result of superimposition of the external structure and right upper lung interstitial prominence but followup PA and lateral chest plain films are recommended to determine whether a true mass lesion could be present in that area. Findings discussed this morning with the emergency room physician covering for the prior emergency room physician, and followup chest plain films are anticipated. CT may become necessary. Dictated by: Michael Perales M.D. on 01/31/2017 at 9:23 12-lead ECG Sinus tachycardia, possible left atrial enlargement, left ventricular hypertrophy Additional Diagnostics DateTimeAnalyzed 04:29:57 -_ pH ____7.387 - 7.350 7.450 pCO2 ___49.6__ -mmHg 35.0 45.0 pO2 ___92.4__ -mmHg 80.0 100 HCO3- ___29.7__ -mmol/L 22.0 26.0 ABE ____4.1__ -mmol/L -2.0 2.0 tHb ___14.8__ -g/dL 12.0 18.0 O2Hb ___95.9__ -% COHb ____1.1__ -% 1.5 MetHb ____0.0__ -% 0.4 1.5 sO2 ___96.7__ -% 95.0 AaDpO2 ___64.7__ -mmHg FIO2 ___30.0__ -% Drawn By AF - Date/Time Notified____ 04:31:00 -_ Oxygen Device 1 ____BIPAP - Notified By AF - K+ ____4.9__ -mmol/L 3.5 5.0 [place] test _Positive - DateTimeAnalyzed 22:32:20 -_ pH ____7.154 - 7.350 7.450 pCO2 ___76.5__ -mmHg 35.0 45.0 pO2 210 -mmHg 80.0 100 HCO3- ___26.9__ -mmol/L 22.0 26.0 ABE ___-3.1__ -mmol/L -2.0 2.0 tHb ___17.3__ -g/dL 12.0 18.0 O2Hb ___94.6__ -% COHb ____5.5__ -% 1.5 MetHb ____0.0__ -% 0.4 1.5 sO2 __100.0__ -% 95.0 Assessment & Plan Sam Stevenson is a 61-year-old man with past medical history significant for severe COPD, hypertension, hyperlipidemia and heart failure who presented to the [facility] emergency department today via EMS due to severe shortness of breath started 4 days ago. Acute hypercapnic respiratory failure secondary to COPD exacerbation, present on admission, active -Secondary to viral and likely community acquired pneumonia -We have obtained Legionella antigen, strep pneumo antigen, respiratory viral PCR, blood cultures, sputum cultures. - Respiratory PCR was positive for rhinovirus/enterovirus -Patient was treated presumably as severe community acquired pneumonia with Levaquin and Zosyn. Patient has already received 1 dose of vancomycin. MRSA swab negative. Discontinue vancomycin -Discontinue Levaquin and Zosyn and switch to Azithromycin 500 mg daily and ceftriaxone 2 g q12 per recommendations of CCU team for bacterial infection, likely be a community-acquired pneumonia. -Repeat ABG significantly improved -CXR shows Severe COPD, possible malignant mass right upper lobe versus focal pneumonia in that area.Repeat CXR shows that mass in Right upper lobe from prior CXR was merely artifact -Continue BiPAP, will wean down IPAP as patient is able to tolerate. Patient starts to decompensate when off the BiPAP for several hours. -At this point patient has improved and there does not seem to be an imminent threat of intubation however patient is agreeable with intubation should it be necessary. -DuoNeb every 6 hrs while awake, albuterol every 2 when necessary shortness of breath -Solu-Medrol 125 mg was given q6 but we have titrate to 80 mg every 8 hours IV while patient is in severe respiratory distress, may be titrated to by mouth medication once his respiratory status improves. -Discontinue Solu-Medrol. Start 40 mg prednisone po daily Sepsis, present on admission, active -Leukocytosis, tachycardia, acute renal failure, mild hyperlactatemia with viral and likely bacterial pneumonia as source -We will continue to treat with antibiotics as above. -02/01/17 WBC increased to 19.6 Procalcitonin decreased to 1.16 -Leukocytosis may also be secondary to steroids -Recheck lactic acid shows that this has normalized -Gentle rehydration was initiated given patient's history of CHF with uncertain EF. Patient not currently on IVF Acute kidney injury, present on admission, active -Most recent baseline available is a creatinine of 0.88 in 2016. -Likely prerenal azotemia given patient's dehydration on exam. -IVF was given, recheck BMP in the morning -Avoid nephrotoxic medications -Consult nephrology, Dr. Vázquez. We appreciate her recommendations Mild hyperkalemia, present on admission, resolved -Potassium on admit was 5.6. Decreased to 4.3 Hyperglycemia secondary to steroid use -Every 6 Accu-Chek -We will initiate insulin if the patient's blood glucose continues to be above 180 -Check Hgb A1C Tobacco use -Nicotine patch offered Chronic issues: Congestive heart failure, uncertain type, not in exacerbation -[facility] Hypertension -Blood pressure elevated -Per recommendations of nephro, start patient on amlodipine 5 mg daily, labetolol 200 mg bid -Continue to monitor Hyperlipidemia -Continue statin CODE STATUS: Full code Disposition: Patient's respiratory status has been improving but he continued to receive treatment for acute hypercapnic respiratory failure secondary to COPD exacerbation. We will continue with current antibiotic regimen. Continue with Duonebs q6hrs while awake, albuterol q2 hrs prn and methylprednisolone. Attempt to wean off steroids. Patient likely to remain inpatient for at least 2 more days. VTE Mechanical Devices: Intermittant Pneumatic CD Resuscitation Status: CPR: Attempt Resuscitation Attending Statement The patient was seen and examined together with Dr. Mcallister on 02/01/2017 and I agree with the history, exam and plan as outlined in the note above. . Ashley Mcallister DO Feb 01, 2017 06:45 Sam Castro MD Feb 02, 2017 16:39 Ashley Mcallister DO Feb 01, 2017 06:45 Ashley Mcallister DO Feb 01, 2017 06:45
[2017-02-01] MEDS: Albuterol-Ipratropium 3 mL Inhalation Solution NEB SCH ×4 (08:10→21:00)
[2017-02-01] MEDS: Azithromycin Inj 500 MG in Dextrose 5% w/Vial Mate 250 ML IV SCH (08:45)
--- NOTE | 2017-02-01 09:52 | PCM.PNMED ---
Subjective Date of Service Feb 01, 2017 Subjective Pulmonary Progress Note Briefly, Patient is a 61-year-old male with a history of severe COPD, CHF, hypertension, hyperlipidemia presented with severe shortness of breath onset 4 days ago. He states his symptoms started about 4 days prior to admission when he developed a "head cold," with sinus congestion, headache, and runny nose. Since then he has noted a severe cough, change in his sputum with increased sputum production and change in appearance from clear to yellow, as well as progressive shortness of breath. He was seen by his primary care provider the day before admission and given a breathing treatment as well as a albuterol rescue inhaler in addition to his Combivent. This helped him initially but his respiratory status continued to decline over the course of the day and he was eventually admitted. On admission, an ABG showed a pH of 7.154 with a PCO2 of 77 and PaO2 of 210 on an oxygen mask. He was placed on BiPAP, given a dose of vancomycin, Zosyn, and Levaquin for presumed severe community-acquired pneumonia. Since admission, his respiratory status has significantly improved, and he was able to tolerate breakfast on nasal cannula for a few hours. However, his respiratory status started to decline again in the afternoon and he was placed back on BiPAP. He states that shortness of breath is somewhat better, but reports that his sinus congestion and headache are still present. He denies fevers, chills, nausea, vomiting, or diarrhea, chest pain, palpitations, hemoptysis. Patient states that he smokes regularly, but intends to quit following this hospitalization. Patient denies any oxygen use at home. He denies frequent COPD exacerbations and has never needed BiPAP or intubation in the past. Overnight: No significant events, Afebrile, no longer tachycardic, but hypertensive in the 160s-180s. Still on Bipap at 30%Fio2 with sats around 94-96% . This morning: ABG showed pH of 7.38, pCO2 49.6, pO2 92.4, HCO3 29.7, FIO2 30, BiPAP 15/5. Patient reports that he is doing much better this morning. He is still having a mildly productive deep cough, but denies any CP, CALVIN, fevers, or rash. He is amenable to more physical activity today. He reports that at baseline, he was only able to walk about 50 feet before becoming winded. He states he was only diagnosed with COPD about 2 years ago. Exam Vital Signs Vital Sign - Last Date Time Temp Pulse Resp B/P Pulse Ox O2 Delivery O2 Flow Rate FiO2 02/01/17 04:34 76 24 191/97 96 30 02/01/17 04:30 Supplement Oxygen 02/01/17 04:30 36.5 02/01/17 00:30 2.00 Intake and Output 01/31/17 01/31/17 02/01/17 Cumulative From/Thru 15:00 23:00 07:00 01/30/17 22:25 - 02/01/17 06:12 Intake Total 2505 ml 1185 ml 4915 ml Output Total 850 ml 1125 ml 2175 ml Balance 1655 ml 60 ml 2740 ml Intake Oral 800 ml 1120 ml 2038 ml IV Total 1705 ml 65 ml 2877 ml Output Urine Total 850 ml 1125 ml 2175 ml # Bowel Movements 0 0 0 Exam General: Alert, Oriented X3, Cooperative, Mild respiratory distress while on NC Head: Normocephalic, atraumatic. External ears normal. Eyes: PERRLA, EOMI. Anicteric sclerae. Mouth: Mouth normal, Mucous membranes moist/pink, no thrush noted Neck: Neck supple with full range of motion. No JVD noted Chest& Lungs: Large barrel chested with mild pectus excavatum with moderate thoracic kyphosis. Lung sounds somewhat distant, but mild rhonchi and end expiratory wheezing noted bilaterally. Cardiovascular: Regular rate/rhythm, Normal S1, Normal S2, No murmurs/rubs/ gallops Abdomen: Non-tender, Non-distended, No masses, Normoactive bowel tones, Soft Musculoskeletal: WAGNER, no swollen or tender joints Extremities: No cyanosis/clubbing/edema bilaterally Skin: Warm, Dry, intact, no rashes noted. Neurological: Grossly neurologically intact. No focal weakness. Positive mood and affect. IVs and Medications Medications Reviewed: Medications were reviewed in detail Lab and Diagnostics Result Diagram: 02/01/17 0258 02/01/17257 X-Rays, CTs and MRIs IMPRESSION: Severe COPD, possible malignant mass right upper lobe versus focal pneumonia in that area. It is possible that this represents result of superimposition of the external structure and right upper lung interstitial prominence but followup PA and lateral chest plain films are recommended to determine whether a true mass lesion could be present in that area. Findings discussed this morning with the emergency room physician covering for the prior emergency room physician, and followup chest plain films are anticipated. CT may become necessary. Dictated by: Michael Perales M.D. on 01/31/2017 at 9:23 12-lead ECG Sinus tachycardia, possible left atrial enlargement, left ventricular hypertrophy Additional Diagnostics DateTimeAnalyzed 22:32:20 -_ pH ____7.154 - 7.350 7.450 pCO2 ___76.5__ -mmHg 35.0 45.0 pO2 210 -mmHg 80.0 100 HCO3- ___26.9__ -mmol/L 22.0 26.0 ABE ___-3.1__ -mmol/L -2.0 2.0 tHb ___17.3__ -g/dL 12.0 18.0 O2Hb ___94.6__ -% COHb ____5.5__ -% 1.5 MetHb ____0.0__ -% 0.4 1.5 sO2 __100.0__ -% 95.0 Assessment & Plan Sam Stevenson is a 61-year-old man with past medical history significant for severe COPD, hypertension, hyperlipidemia and heart failure who presented to the [facility] emergency department today via EMS due to severe shortness of breath started 4 days ago. Acute on chronic hypercapnic hypoxemic respiratory failure secondary to COPD exacerbation - Secondary to Rhinovirus pneumonia and possible community acquired pneumonia. - Patient doing well on the BiPAP, and repeat ABG was significantly improved while on the BiPAP. He is continuing to tolerate longer intervals without the BiPAP. Will continue to wean off as tolerated. - Continue DuoNeb q4-6h while awake, - Albuterol neb q2h PRN - Solu-Medrol 80 mg q8h - continue tapering and switch to PO when appropriate - Controlled use of opiates to decrease air hunger. - PT eval and RT evaluation of proper MDI inhaler usage prior to d/c. Roadtest for any oxygen requirement prior to d/c. Community acquired pneumonia, acute. - Respiratory PCR was positive for rhinovirus/enterovirus. He has some infectious markers suspicious for secondary bacterial infection as well, including leukocytosis with left shift and elevated procalcitonin. His leukocytosis and left shift may be secondary to steroids, however. He has no recent history of hospital exposure, so any bacterial infection would likely be a community-acquired pneumonia. MRSA screen negative. - Legionella antigen, strep pneumo antigen both negative - Blood cultures, sputum cultures pending - Changed abx to ceftriaxone and azithromycin 01/31. Recommend patient complete full course. Recommend Influenza and Pneumovax Sepsis, acute. - Patient initially presented with sepsis and a lactic acid of 2.6, improved to 1.6. - Continue to monitor, improved Acute kidney injury - Most recent baseline available is a creatinine of 0.88 in 2016. Likely prerenal azotemia given patient's dehydration on exam and suspected sepsis. - Gave two boluses of 1L NS on admission. Appears somewhat dry, so may use some more fluids. - Avoid nephrotoxic medications - Continue to monitor BMP Hypertension, POA Continues to be uncontrolled and appears to be worsening. Discontinued Lisinopril due to the MONICA, will use Metoprolol and Amlodipine for acute control History of nicotine dependence. - Patient is an every day smoker. States he will quit starting this hospitalization. Reinforced this decision and counseled patient on smoking cessation. - Nicotine patch - Nicorette Disposition: Recommend stepping down to PCC when resp status is stable. Pain Evaluation: Adequate Pain Control VTE Mechanical Devices: Intermittant Pneumatic CD Resuscitation Status: CPR: Attempt Resuscitation Time spent CPT code 45693 Attending Statement Patient seen and examined. Pertinent labs and imaging reviewed. Findings reviewed and discussed with the residents. Amendments made verbally with the resident and/or directly on the stocking review developed Mike Weber DO Feb 01, 2017 06:45 Johnathan Dallas MD Feb 01, 2017 15:01
[2017-02-01] MEDS: fentaNYL-PF 50 mCg/mL 2 mL Inj IVPUSH PRN (10:08)
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
[2017-02-01 13:32] LABS: APPEARANCE,URINE HAZY (CLEAR,HAZY); COLOR,URINE STRAW (YELLOW); OCCULT BLOOD,URINE SMALL (NEGATIVE); PH,URINE 5.5 (5.0-8.0); UROBILINOGEN,URINE NORMAL (NORMAL)
[2017-02-01] MEDS ORDERED: 0.9% Sodium Chloride 1,000 ML IV SCH (13:40)
--- NOTE | 2017-02-01 15:20 | DRSVH ---
[facility] [address] [place] [address] Echocardiogram Report Name: CHANTEL GORDON GStudy Date: 02/01/2017 Height: 68 in Hospital Exam Location: [facility] Weight: 152 lb Gender: Male BSA: 1.8 m2 : 1955 Age: 61 yrs BP: 191/97 mmHg Reason For Study: SHORTNESS OF BREATH Ordering Physician: Performed By: Masood Arevalo Interpretation Summary Borderline concentric left ventricular hypertrophy with ejection fraction 60- 65%. Grade I diastolic dysfunction. Mildly dilated left atrium. There is discrete nodular thickening of the right coronary cusp. Mild aortic regurgitation. Mild to moderate mitral annular calcification. Comparison is made with the echocardiogram of 08/15/13, aortic regurgitation has improved. Procedure: A two-dimensional transthoracic echocardiogram with color flow and Doppler was performed. The study quality was technically adequate. Comparison is made with the echocardiogram of 08/15/13. The patient was in normal sinus rhythm during the exam. Left Ventricle: The left ventricle is normal in size. There is borderline concentric left ventricular hypertrophy. The ejection fraction is estimated to be 60-65%. There are no focal wall motion abnormalities. Assessment of diastolic parameters indicates a relaxation abnormality of the left ventricle, consistent with normal filling pressures. Right Ventricle: The right ventricle is normal in size and function. Atria: The left atrium is mildly dilated. Right atrial size is normal. The interatrial septum is intact with no evidence for an atrial septal defect. Mitral Valve: There is mild to moderate mitral annular calcification. The mitral valve leaflets are mildly calcified. The mitral valve chordae are thickened and/or calcified. There is trace mitral regurgitation. Aortic Valve: The aortic valve is not well visualized. The aortic valve is mildly calcified. There is discrete nodular thickening of the right coronary cusp. There is no hemodynamically significant valvular aortic stenosis. There is mild aortic regurgitation. Tricuspid Valve: The tricuspid valve is normal in structure and function. There is a trace or physiologic amount of tricuspid regurgitation. Pulmonic Valve: The pulmonic valve is not well visualized. Great Vessels: The aortic root is normal size. The ascending aorta could not be visualized. The pulmonary artery is normal size. The IVC is of normal diameter and collapses greater than 50% with a sniff. This suggests a low right atrial pressure of 3 mm Hg. Pericardium/ Pleura There is no pericardial effusion. There is no pleural effusion. MMode/2D Measurements & Calculations LVIDd: 4.8 cm LA dimension: 3.1 cm LVIDs: 3.2 cm FS: 34.4 % LA A2 area: 23.3 cm EPSS: 0.62 cm LA A4 area: 17.5 cm IVSd: 1.00 cm LA length (vol): 4.8 cm LVPWd: 1.0 cm LA vol: 72.2 ml LA vol index: 39.7 ml/m IVC diam: 1.8 cm RA long axis: 4.6 cm LVOT diam: 2.2 cm RA area: 12.9 cm Ao root diam: 3.6 cm RA vol: 30.8 ml Aortic Jxn: 2.7 cm RA : 16.9 ml/m2 LV ca. diameter/BSA (cm/m^2): 2.6 LV sys. diameter/BSA (cm/m^2): 1.7 Doppler Measurements & Calculations Ao V2 max: 204.4 cm/sec MV E max juan david: 96.4 cm/sec Ao max P.7 mmHg MV A max juan david: 145.2 cm/sec Ao mean P.5 mmHg MVA(VTI): 3.4 cm2 LVOT Max Juan David: 107.4 cm/sec RADHA(I,D): 2.1 cm sev ratio: 0.55 AI P1/2t: 511.8 msec AI dec slope: 248.8 cm/sec2 MV E/A: 0.66 PA V2 max: 54.3 cm/sec Med Peak E' Juan David: 5.4 cm/sec PA mean P.72 mmHg E/E' med: 18.0 PA Accel Time: 0.04 sec Lat Peak E' Juan David: 6.9 cm/sec E/E' lat: 14.0 E/e' average: 16.0 Pulm A Revs Dur: 0.10 sec MV V2 mean: 95.7 cm/sec Ao V2 mean: 138.0 cm/sec MV mean P.9 mmHg Ao V2 VTI: 38.3 cm MV V2 VTI: 24.4 cm RADHA(V,D): 2.1 cm2 MV dec time: 0.16 sec LV V1 max P.6 mmHg PA V2 mean: 40.7 cm/sec LV V1 VTI: 21.1 cm PA pr(Accel): 60.7 mmHg RADHA indexed to BSA (cm^2/m^2): 1.2 Electronically signed by: Tennille Raines on Reading Physician:02/01/2017 03:19 PM
--- NOTE | 2017-02-01 19:01 | NUR ---
Resp/Activity tolerance/BP Significant exertional dyspnea with activity of BSC; dropping sats to 80-82% with 5-10min recovery time. while awake and resting, tolerating 2Lnc, needing placed back on Bipap after desat episodes, x4 during day. BP 190s/110->160s/90s->174/94. Additional meds administered as ordered, last med being Labetolol 200mg po @ 1835 as newly ordered.
[2017-02-02] VITALS (14 sets, daily range): BP systolic 147–194; BP diastolic 77–105; PULSE 72–101; RESP 18–27; O2SAT 91–99
[2017-02-02] MEDS: Heparin 5,000 Unit/mL Inj SUBQ SCH ×3 (00:49→16:14)
[2017-02-02] MEDS: Albuterol 2.5 mg/3 mL Inhalation Solution NEB PRN ×2 (00:55→05:20)
[2017-02-02 03:14] LABS: BASOPHILS % (AUTO) 0 % (0-3); EOSINOPHILS % (AUTO) 0 % (0-5); MONOCYTES % (AUTO) 2.9 % (4-12); Mean Corpuscular Hemoglobin 31.4 pg (27.0-35.0); Mean Corpuscular Volume 94.3 fL (81-100); NEUTROPHILS % (AUTO) 93.8 % (40-74); Platelet Count 218 bil/L (150-400)
--- NOTE | 2017-02-02 03:53 | NUR ---
SOB/BIPAP/Back Pain Pt wore BIPAP for the majority of the shift. Pt had several spontaneous coughing fits. Pt moving very little air while tachypnic. Pt tripodding, SOB resolved with PRN albuterol nebulizer. Pt given tylenol for back pain with good effect. Addendum: 02/02/17 at 0644 by DESTIN RODRÍGUEZ RN Resident paged regarding patient's request for additional pain management medication. No response yet. Will pass along information to day RN.
[2017-02-02] MEDS: Azithromycin Inj 500 MG in Dextrose 5% w/Vial Mate 250 ML IV SCH (08:13)
[2017-02-02] MEDS: Albuterol-Ipratropium 3 mL Inhalation Solution NEB SCH ×4 (08:15→20:18)
[2017-02-02] MEDS ORDERED: predniSONE 20 mg Tablet PO SCH (08:30)
--- NOTE | 2017-02-02 09:26 | DRSVH ---
PROCEDURE: US RENAL WITH ARTERIES DUPLEX DOPPLER SONOGRAM, LIMITED INDICATIONS: uncontrolled HTN and MONICA TECHNIQUE: Real time scanning was performed of both kidneys, followed by Color and pulsed Doppler in terrogation of the renal vessels. COMPARISON: None. FINDINGS: Aortic peak systolic velocity: 56 cm/s. Right side: Garvey-scale imaging: Kidney is 12.7 cm long; renal cortical thickness is 1.1 cm. No hydronephrosis. No nephrolithiasis. Renal cortex is normal in echogenicity. No suspicious solid renal masses. Proximal renal artery peak systolic velocity: 240 cm/s. Mid renal artery peak systolic velocity: 221 cm/s. Distal renal artery peak systolic velocity: 133 cm/s. Renal vein: Patent, without thrombus. Peak renal/aortic ratio (RAR): 4.2. Left side: Garvey-scale imaging: Kidney is 8.8 cm long; renal cortical thickness is 1.0 cm. No hydronephrosis. No nephrolithiasis. Renal cortex is normal in echogenicity. No suspicious solid renal masses. Proximal renal artery peak systolic velocity: Not visualized. Mid-renal artery peak systolic velocity: Not visualized. Distal renal artery peak systolic velocity: Not visualized. Renal vein: Patent, without thrombus. Peak renal/aortic ratio (RAR): N./A.. IMPRESSION: 1. Elevated velocities within the proximal to mid right renal artery with elevated velocities in aor tic ratios suggesting greater than 60% right renal artery stenosis. 2. Left renal artery obscured by overlying bowel gas. Dictated by: Mejia Nicholson A Interpreted: Gerda Mai MD on 02/01/2017 at 16:09 Approved by: Gerda Mai M.D. on 02/02/2017 at 9:24
[2017-02-02] MEDS ORDERED: 0.9% Sodium Chloride 500 ML IV SCH (11:50)
--- NOTE | 2017-02-02 11:57 | PCM.PNNEPH ---
Subjective Date of Service Feb 02, 2017 Subjective IVF given, Cr came down to 1.3. Repeat UA showed no hematuria. (+) SOB. Exam Vital Signs Vital Sign - Last Date Time Temp Pulse Resp B/P Pulse Ox O2 Delivery O2 Flow Rate FiO2 02/02/17 09:05 89 22 95 30 02/02/17 08:30 Supplement Oxygen CPAP/BIPAP 02/02/17 08:15 3.00 02/02/17 08:04 36.6 194/105 Intake and Output 02/01/17 02/01/17 02/02/17 Cumulative From/Thru 15:00 23:00 07:00 01/30/17 22:25 - 02/02/17 05:48 Intake Total 705 ml 1193 ml 6813 ml Output Total 950 ml 1000 ml 4125 ml Balance -245 ml 193 ml 2688 ml Intake Oral 586 ml 400 ml 3024 ml IV Total 119 ml 793 ml 3789 ml Output Urine Total 950 ml 1000 ml 4125 ml # Bowel Movements 4 0 4 Exam General appearance: Awake, alert, oriented x3. Tachypneic. Mild distress on BiPAP. HEENT: Atraumatic. No pallor, no icteric sclerae. No JVD. Positive for poor skin turgor on the neck. No JVD. No lymphadenopathy. No thyroid enlargement. Heart: Regular rhythm. Normal S1, S2. No murmurs, rubs or gallops. Lungs: Tachypneic. Accessory muscle use on BiPAP, wheezing bilaterally. Abdomen is soft, active bowel sounds. Nontender. Nondistended. No hepatosplenomegaly. Extremities: No edema, cyanosis or clubbing of fingers. Lab and Diagnostics Result Diagram: 02/02/17 0306 02/02/17 0306 Microbiology Postive for Rhinovirus/Enterovirus X-Rays, CTs and MRIs IMPRESSION: Severe COPD, possible malignant mass right upper lobe versus focal pneumonia in that area. It is possible that this represents result of superimposition of the external structure and right upper lung interstitial prominence but followup PA and lateral chest plain films are recommended to determine whether a true mass lesion could be present in that area. Findings discussed this morning with the emergency room physician covering for the prior emergency room physician, and followup chest plain films are anticipated. CT may become necessary. Dictated by: Michael Perales M.D. on 01/31/2017 at 9:23 12-lead ECG Sinus tachycardia, possible left atrial enlargement, left ventricular hypertrophy Additional Diagnostics DateTimeAnalyzed 22:32:20 -_ pH ____7.154 - 7.350 7.450 pCO2 ___76.5__ -mmHg 35.0 45.0 pO2 210 -mmHg 80.0 100 HCO3- ___26.9__ -mmol/L 22.0 26.0 ABE ___-3.1__ -mmol/L -2.0 2.0 tHb ___17.3__ -g/dL 12.0 18.0 O2Hb ___94.6__ -% COHb ____5.5__ -% 1.5 MetHb ____0.0__ -% 0.4 1.5 sO2 __100.0__ -% 95.0 Plan Impression 1. MONICA due to prerenal azotemia and possible ATN due to ongoing infection and administration of vancomycin and zosyn. improved with IVF. 2. COPD exacerbation and community-acquired pneumonia. Respiratory PCR is positive for enterovirus and rhinovirus. 3. Uncontrolled HTN. - Suspected KRISTY. Renal US doppler: - Right 12.7 cm, Left 8.8 cm - Elevated velocities within the proximal to mid right renal artery with elevated velocities in aortic ratios suggesting greater than 60% right renal artery stenosis. - Left renal artery obscured by overlying bowel gas. 4. Atrophic left kidney. 5. Hematuria, repeat UA showed no RBCs. Plan: Increase amlodipine to 10 mg daily. Continue labetalol 200 mg BID. NS 40 ml/hr for another 500 ml. Romario Kelley MD Feb 02, 2017 11:57
[2017-02-02] MEDS: cefTRIAXone Inj 2,000 MG in Dextrose 5% Minibag Plus 50 ML IV SCH (14:36)
--- NOTE | 2017-02-02 15:55 | PCM.PNMED ---
Subjective Date of Service Feb 02, 2017 Subjective Overnight: No significant events, Afebrile, continues to be hypertensive. Was not able to wear the BiPAP consistently overnight due to discomfort and anxiety. Still on Bipap at 30%Fio2 with sats around 94-96%. He is requiring about 2-3L O2 without BiPAP. He was able to work briefly with PT. This morning: He reports he is feeling better, but still very short of breath with exertion. He reports that when he gets Fentanyl, it helps him sleep and tolerate the BiPAP better. He denies any CP, Rash, CALVIN. Exam Vital Signs Vital Sign - Last Date Time Temp Pulse Resp B/P Pulse Ox O2 Delivery O2 Flow Rate FiO2 02/02/17 12:22 86 27 96 BiPAP 30 02/02/17 11:30 36.7 173/86 3.00 Intake and Output 02/01/17 02/01/17 02/02/17 Cumulative From/Thru 15:00 23:00 07:00 01/30/17 22:25 - 02/02/17 05:48 Intake Total 705 ml 1193 ml 6813 ml Output Total 950 ml 1000 ml 4125 ml Balance -245 ml 193 ml 2688 ml Intake Oral 586 ml 400 ml 3024 ml IV Total 119 ml 793 ml 3789 ml Output Urine Total 950 ml 1000 ml 4125 ml # Bowel Movements 4 0 4 Exam General: Alert, Oriented X3, Cooperative, Mild respiratory distress while on NC Head: Normocephalic, atraumatic. External ears normal. Eyes: PERRLA, EOMI. Anicteric sclerae. Mouth: Mouth normal, Mucous membranes moist/pink, no thrush noted Neck: Neck supple with full range of motion. No JVD noted Chest& Lungs: Large barrel chested with mild pectus excavatum with moderate thoracic kyphosis. Lung sounds severely dimnished with wheezing and rhonchi. Cardiovascular: Regular rate/rhythm, Normal S1, Normal S2, No murmurs/rubs/ gallops Abdomen: Non-tender, Non-distended, No masses, Normoactive bowel tones, Soft Musculoskeletal: WAGNER, no swollen or tender joints Extremities: No cyanosis/clubbing/edema bilaterally Skin: Warm, Dry, intact, no rashes noted. Neurological: Grossly neurologically intact. No focal weakness. Positive mood and affect. IVs and Medications Medications Reviewed: Medications were reviewed in detail Lab and Diagnostics Result Diagram: 02/02/17 0306 02/02/17 0306 Microbiology Postive for Rhinovirus/Enterovirus X-Rays, CTs and MRIs IMPRESSION: Severe COPD, right upper lobe infiltrate. Dictated by: Michael Perales M.D. on 01/31/2017 at 9:23 12-lead ECG Sinus tachycardia, possible left atrial enlargement, left ventricular hypertrophy Additional Diagnostics DateTimeAnalyzed 22:32:20 -_ pH ____7.154 - 7.350 7.450 pCO2 ___76.5__ -mmHg 35.0 45.0 pO2 210 -mmHg 80.0 100 HCO3- ___26.9__ -mmol/L 22.0 26.0 ABE ___-3.1__ -mmol/L -2.0 2.0 tHb ___17.3__ -g/dL 12.0 18.0 O2Hb ___94.6__ -% COHb ____5.5__ -% 1.5 MetHb ____0.0__ -% 0.4 1.5 sO2 __100.0__ -% 95.0 Assessment & Plan Sam Stevenson is a 61-year-old man with past medical history significant for severe COPD, hypertension, hyperlipidemia and heart failure who presented to the [facility] emergency department today via EMS due to severe shortness of breath started 4 days ago. Acute on chronic hypercapnic hypoxemic respiratory failure secondary to COPD exacerbation - Secondary to Rhinovirus pneumonia and possible community acquired pneumonia. - Patient doing well on the BiPAP, and repeat ABG was significantly improved while on the BiPAP at 14/7. He is continuing to tolerate longer intervals without the BiPAP. Will continue to wean off as tolerated. - Continue DuoNeb q4-6h while awake, - Albuterol neb q2h OK - PT eval and RT evaluation of proper MDI inhaler usage prior to d/c. - Patient slowly improving, but could be on BiPAP more consistently. Continue using Fentanyl judiciously to help patient tolerate BiPAP at night, at least until his resp status is more improved. - Solu-Medrol 60mg Q6h 02/02 due to increased wheezing. Also added oral Theophylline 300mg BID 02/02. Community acquired pneumonia, acute. - Respiratory PCR was positive for rhinovirus/enterovirus. He has some infectious markers suspicious for secondary bacterial infection as well, including leukocytosis with left shift and elevated procalcitonin. His leukocytosis and left shift may be secondary to steroids, however. He has no recent history of hospital exposure, so any bacterial infection would likely be a community-acquired pneumonia. MRSA screen neg - Legionella antigen, strep pneumo antigen both negative - Blood cultures, sputum cultures pending - Changed abx to ceftriaxone and azithromycin 01/31. Recommend patient complete full course. Recommend Influenza and Pneumovax Sepsis, acute. - Patient initially presented with sepsis and a lactic acid of 2.6, improved to 1.6. - Continue to monitor, improved Acute kidney injury - Improving, as managed by nephrology service. Most likely ATN. Improving with fluid boluses. Hypertension, POA As patient's dyspnea and anxiety improves his blood pressures also should improve. [place] I most certainly contributing. History of nicotine dependence. - Patient is an every day smoker. States he will quit starting this hospitalization. Reinforced this decision and counseled patient on smoking cessation. - Nicotine patch - Nicorette -Influenza and Pneumovax prior to D/C Pain Evaluation: Adequate Pain Control VTE Mechanical Devices: Intermittant Pneumatic CD Resuscitation Status: CPR: Attempt Resuscitation Time spent CPT code 85226 Attending Statement Patient seen and examined. Pertinent labs and imaging reviewed. Findings reviewed and discussed with the residents. Amendments made verbally with the resident and/or directly on this documented. Agree with the above. Mike Weber DO Feb 02, 2017 15:55 Johnathan Dallas MD Feb 03, 2017 14:19 - Nicorette Pain Evaluation: Adequate Pain Control VTE Mechanical Devices: Intermittant Pneumatic CD Resuscitation Status: CPR: Attempt Resuscitation Mike Weber DO Feb 02, 2017 15:55 Resuscitation Status: CPR: Attempt Resuscitation Mike Weber DO Feb 02, 2017 15:55
[2017-02-02] MEDS: Theophylline 100 mg ER12 Tablet PO SCH (17:45)
[2017-02-02] MEDS: MethylprednisoLONE Sodium Succinate 62.5 mg/mL 2 mL Inj IVPUSH SCH (17:45)
--- NOTE | 2017-02-02 18:29 | NUR ---
Spoke with Sandoval Elizondo at [facility] regarding setting this patient up on [facility]. He will visit the patient here tomorrow morning around 10a.
--- NOTE | 2017-02-02 18:44 | NUR ---
Resp/Bowels/Pain Patient a/o x 4, c/o back pain x 1, Tylenol given with moderate effect. Lungs course and tight, neb tx given scheduled. Patient had multiple spontaneous coughing episodes, moist but unable to bring up sputum. Patient wearing bipap most of the shift and O2NC @ 3L for meals. Patient oob to bsc with sba to assist with lines, having loose stools x 3 this shift. SBP 170-190's, aware and no new orders this shift.
--- NOTE | 2017-02-02 18:52 | PCM.PNMED ---
Subjective Date of Service Feb 02, 2017 Subjective Sam Stevenson is a 61-year-old man with past medical history significant for severe COPD, hypertension, hyperlipidemia and heart failure who presented to the [facility] emergency department today via EMS due to severe shortness of breath started 4 days ago. Today, patient states that he feels better. He continues to have dyspnea especially with exertion. He can remain off biPap for several hours but continues to require BiPap. He states that he was not able to sleep well last night. On ROS, he denies headaches, visual changes, chest pain, nausea, vomiting and abdominal pain. Overnight, patient wore the BiPap for the majority of the night. He was complaining of back pain and received Tylenol with good relief. Exam Vital Signs Vital Sign - Last Date Time Temp Pulse Resp B/P Pulse Ox O2 Delivery O2 Flow Rate FiO2 02/02/17 05:20 74 22 162/92 95 30 02/02/17 04:28 Room Air 02/01/17 23:05 36.6 02/01/17 16:25 2.00 Intake and Output 02/01/17 02/01/17 02/02/17 Cumulative From/Thru 15:00 23:00 07:00 01/30/17 22:25 - 02/02/17 05:48 Intake Total 705 ml 1193 ml 6813 ml Output Total 950 ml 1000 ml 4125 ml Balance -245 ml 193 ml 2688 ml Intake Oral 586 ml 400 ml 3024 ml IV Total 119 ml 793 ml 3789 ml Output Urine Total 950 ml 1000 ml 4125 ml # Bowel Movements 4 0 4 Exam General: Patient is sitting upright on bed, AAOX3,mild acute distress, cooperative and appropriately interactive HEENT: head normocephalic and atraumatic, PERRLA, EOMI, no scleral icterus, noninjected conjunctiva, BiPap mask on face Neck: neck supple, non-tender, no lymphadenopathy, trachea midline, no JVD CV: tachycardic with regular rhythm, s1 and s2 heard, radial pulses 2+ and equal bilaterally, no rubs murmurs or gallops, no edema Lungs: reduced breath sounds bilaterally with scattered wheezes, increased work of breathing and some use of accessory muscles, patient is evidently barrel- chested Abdomen: normoactive bowel sounds on 4Q, soft, non-distended, non-tender to palpation, no organomegally, Skin: warm and dry, skin tenting on exam Musculoskeletal: UE and LE strength bilaterally, full ROM bilaterally Neuro: Grossly neurologically intact, cranial nerves II through XII intact, no dyskinesia, dysmetria, or dysdiadochokinesia noted, sensation intact in extremities Psych: Normal mood and affect IVs and Medications IV Fluids IV fluids at 40 mls/hr Medications Reviewed: Medications were reviewed in detail Lab and Diagnostics Laboratory Tests Test 02/02/17 03:06 White Blood Count 16.3th/mm3 (3.8-10.1) Red Blood Count 4.75mil/mm3 (4.40-5.80) Hemoglobin 14.9g/dL (13.8-17.2) Hematocrit 44.8% (41.0-50.0) Mean Corpuscular Volume 94.3fL (81-100) Mean Corpuscular Hemoglobin 31.4pg (27.0-35.0) Mean Corpuscular Hemoglobin Concent 33.3% (32.0-37.0) Red Cell Distribution Width 14.5% (12.3-15.4) Platelet Count 218bil/L (150-400) Neutrophils (%) (Auto) 93.8% (40-74) Lymphocytes (%) (Auto) 2.9% (14-46) Monocytes (%) (Auto) 2.9% (4-12) Eosinophils (%) (Auto) 0% (0-5) Basophils (%) (Auto) 0% (0-3) Sodium Level 139mEq/L (134-144) Potassium Level 4.7mEq/L (3.5-5.2) Chloride Level 99mEq/L (97-108) Carbon Dioxide Level 28mmol/L (18-29) Blood Urea Nitrogen 44mg/dL (8-27) Creatinine 1.39mg/dL (0.76-1.27) Estimat Glomerular Filtration Rate 55mL/min (>59) Glucose Level 155mg/dL (60-99) Lactic Acid Level 1.3mmol/L (0.4-2.0) Calcium Level 9.0mg/dL (8.5-10.1) Magnesium Level 2.1mg/dL (1.6-2.6) Total Bilirubin 0.2mg/dL (0.0-1.2) Aspartate Amino Transf (AST/SGOT) 40U/L (0-50) Alanine Aminotransferase (ALT/SGPT) 33U/L (0-44) Alkaline Phosphatase 61U/L (25-160) Total Protein 6.5g/dL (6.4-8.4) Albumin 3.3g/dL (3.4-5.0) Procalcitonin 0.75ng/mL (0.00-0.08) Microbiology 01/30/17 Blood Culture - Preliminary, Resulted No growth at 2 days; culture examined... 02/01/17 Stool Occult Blood (NANNETTE) - Final, Complete 01/31/17 MRSA (PCR) - Final, Complete 02/01/17 Eosinophil Smear (NANNETTE) - Final, Complete 01/31/17 Sputum Quality Screen - Final, Complete 01/31/17 Sputum Culture - Final, Complete SCANT NORMAL BONNIE PRESENT Result Diagram: 02/02/17 0306 02/02/17 0306 Microbiology Postive for Rhinovirus/Enterovirus X-Rays, CTs and MRIs IMPRESSION: Severe COPD, possible malignant mass right upper lobe versus focal pneumonia in that area. It is possible that this represents result of superimposition of the external structure and right upper lung interstitial prominence but followup PA and lateral chest plain films are recommended to determine whether a true mass lesion could be present in that area. Findings discussed this morning with the emergency room physician covering for the prior emergency room physician, and followup chest plain films are anticipated. CT may become necessary. Dictated by: Michael Perales M.D. on 01/31/2017 at 9:23 PROCEDURE: US RENAL WITH ARTERIES DUPLEX DOPPLER SONOGRAM, LIMITED IMPRESSION: 1. Elevated velocities within the proximal to mid right renal artery with elevated velocities in aortic ratios suggesting greater than 60% right renal artery stenosis. 2. Left renal artery obscured by overlying bowel gas. 12-lead ECG Sinus tachycardia, possible left atrial enlargement, left ventricular hypertrophy Additional Diagnostics DateTimeAnalyzed 22:32:20 -_ pH ____7.154 - 7.350 7.450 pCO2 ___76.5__ -mmHg 35.0 45.0 pO2 210 -mmHg 80.0 100 HCO3- ___26.9__ -mmol/L 22.0 26.0 ABE ___-3.1__ -mmol/L -2.0 2.0 tHb ___17.3__ -g/dL 12.0 18.0 O2Hb ___94.6__ -% COHb ____5.5__ -% 1.5 MetHb ____0.0__ -% 0.4 1.5 sO2 __100.0__ -% 95.0 Assessment & Plan Sam Stevenson is a 61-year-old man with past medical history significant for severe COPD, hypertension, hyperlipidemia and heart failure who presented to the [facility] emergency department today via EMS due to severe shortness of breath started 4 days ago. Acute hypercapnic respiratory failure secondary to COPD exacerbation, present on admission, active -Secondary to viral and likely community acquired pneumonia -We have obtained Legionella antigen, strep pneumo antigen, respiratory viral PCR, blood cultures, sputum cultures. - Respiratory PCR was positive for rhinovirus/enterovirus -Patient was treated presumably as severe community acquired pneumonia with Levaquin and Zosyn. Patient has already received 1 dose of vancomycin. MRSA swab negative. Discontinue vancomycin -Discontinue Levaquin and Zosyn and switch to Azithromycin 500 mg daily and ceftriaxone 2 g q12 per recommendations of CCU team for bacterial infection, likely be a community-acquired pneumonia. -Repeat ABG significantly improved -CXR shows Severe COPD, possible malignant mass right upper lobe versus focal pneumonia in that area.Repeat CXR shows that mass in Right upper lobe from prior CXR was merely artifact -Continue BiPAP, will wean down IPAP as patient is able to tolerate. Patient starts to decompensate when off the BiPAP for several hours. -At this point patient has improved and there does not seem to be an imminent threat of intubation however patient is agreeable with intubation should it be necessary. -DuoNeb every 6 hrs while awake, albuterol every 2 when necessary shortness of breath -Solu-Medrol 125 mg was given q6 but we have titrate to 80 mg every 8 hours IV while patient is in severe respiratory distress, may be titrated to by mouth medication once his respiratory status improves. -Discontinued Solu-Medrol and Started 40 mg prednisone po daily -02/02/17 Per recommendations of Pulmonology, Solu-Medrol 60mg Q6h and Theophylline 300mg BID -PT and RT eval Sepsis, present on admission, active -Leukocytosis, tachycardia, acute renal failure, mild hyperlactatemia with viral and likely bacterial pneumonia as source -We will continue to treat with antibiotics as above. -02/01/17 WBC increased to 19.6 Procalcitonin decreased to 1.16 -Leukocytosis may also be secondary to steroids -Recheck lactic acid shows that this has normalized -Gentle rehydration was initiated given patient's history of CHF with uncertain EF. Patient not currently on IVF Acute kidney injury, present on admission, active -Most recent baseline available is a creatinine of 0.88 in 2016. -Likely prerenal azotemia given patient's dehydration on exam. -IVF was given, recheck BMP in the morning -Avoid nephrotoxic medications -Consult nephrology, Dr. Vázquez. We appreciate her recommendations -Patient is found to have an atrophic left kidney and right renal artery stenosis -NS 40 ml/hr for another 500 ml. Hypertension -Blood pressure elevated -Per recommendations of nephro, increase amlodipine to 10 mg daily, labetolol 200 mg bid -Continue to monitor Mild hyperkalemia, present on admission, resolved -Potassium on admit was 5.6. Decreased to 4.3 Hyperglycemia secondary to steroid use -Every 6 Accu-Chek -We will initiate insulin if the patient's blood glucose continues to be above 180 -Check Hgb A1C Tobacco use -Nicotine patch offered Chronic issues: Congestive heart failure, uncertain type, not in exacerbation -Request records from [place] regarding most recent echocardiogram Hyperlipidemia -Continue statin CODE STATUS: Full code Disposition: Patient's respiratory status has been improving but he continued to receive treatment for acute hypercapnic respiratory failure secondary to COPD exacerbation. We will continue with current antibiotic regimen. Continue with Duonebs q6hrs while awake, albuterol q2 hrs prn and methylprednisolone. Attempt to wean off steroids. Patient likely to remain inpatient for at least 2 more days. This is a 61-year-old male with significant past medical history of COPD, tobacco abuse, hypertension who came to the hospital due to difficulty with anything. He has been treated for COPD exacerbation and community- acquired pneumonia. Respiratory PCR is positive for enterovirus and rhinovirus. Renal service was consulted to manage acute kidney injury. Acute kidney injury. His baseline creatinine was 0.8 in July 2015. His initial serum creatinine was 1.28 and gradually margarito to 1.8 today despite being received IV fluid. He was given IV vancomycin and Zosyn. Subsequently they were stopped and started on ceftriaxone and azithromycin. Of note, CT abdomen in November 2016 showed atrophic left kidney concerning of renovascular disease. UA revealed 11-50 RBCs. His blood pressure has been on the high side throughout the hospitalization. Lisinopril was discontinued this morning due to worsening kidney function. Amlodipine and metoprolol were prescribed. Per my assessment I think he is euvolemic and a bit on the dry side. The etiology of acute kidney injury is likely due to ATN due to ongoing infection and administration of vancomycin and zosyn. I would like to repeat a UA, get urine protein/creatinine ratio. We will order a renal Doppler to rule out renal artery stenosis. Given microscopic hematuria, I will repeat a UA. Regarding blood pressure control, will start him on labetalol 200 mg twice a day along with amlodipine 5 mg once a day. I agreed with the primary team to hold lisinopril for now. Please avoid nephrotoxins and renally dose medications. Pain Evaluation: Adequate Pain Control VTE Prophylaxis: Sub-Q Heparin (Unfractionated) VTE Mechanical Devices: Intermittant Pneumatic CD Resuscitation Status: CPR: Attempt Resuscitation Attending Statement The patient was seen and examined together with Dr. Mcallister on 02/02/2017 and I agree with the history, exam and plan as outlined in the note above. . Ashley Mcallister DO Feb 02, 2017 06:56 Sam Castro MD Feb 03, 2017 07:53
[2017-02-02] MEDS: fentaNYL-PF 50 mCg/mL 2 mL Inj IVPUSH PRN (21:28)
[2017-02-03] VITALS (7 sets, daily range): BP systolic 151–201; BP diastolic 83–108; PULSE 81–97; RESP 18–27; O2SAT 91–97
[2017-02-03] MEDS: Heparin 5,000 Unit/mL Inj SUBQ SCH ×4 (00:53→23:54)
[2017-02-03] MEDS: MethylprednisoLONE Sodium Succinate 62.5 mg/mL 2 mL Inj IVPUSH SCH ×5 (00:53→23:54)
[2017-02-03] MEDS: cefTRIAXone Inj 2,000 MG in Dextrose 5% Minibag Plus 50 ML IV SCH ×3 (00:54→23:55)
[2017-02-03 02:56] LABS: BASOPHILS % (AUTO) 0.1 % (0-3); EOSINOPHILS % (AUTO) 0 % (0-5); MONOCYTES % (AUTO) 2.2 % (4-12); Mean Corpuscular Hemoglobin 31.7 pg (27.0-35.0); NEUTROPHILS % (AUTO) 93.4 % (40-74); Platelet Count 235 bil/L (150-400)
[2017-02-03] MEDS: Albuterol-Ipratropium 3 mL Inhalation Solution NEB SCH ×4 (05:56→20:41)
--- NOTE | 2017-02-03 07:34 | NUR ---
Mentation / activity Pt is alert and oriented. Appropriate behavior. Pt up walking and tolerated well. No overt complications noted. Addendum: 02/03/17 at 0736 by PARK BERNAL RN Correction Disregard above note. Wrong pt
--- NOTE | 2017-02-03 07:35 | NUR ---
Respiratory Denies SOB. VSS. Tolerating BiPAP and NC well. No overt complications noted.
[2017-02-03] MEDS: Theophylline 100 mg ER12 Tablet PO SCH ×2 (09:21→20:12)
[2017-02-03] MEDS: Azithromycin Inj 500 MG in Dextrose 5% w/Vial Mate 250 ML IV SCH (09:21)
[2017-02-03] MEDS ORDERED: Glucose 40% Oral Gel 15 Gm Tube PO PRN (09:30)
--- NOTE | 2017-02-03 13:01 | DRSVH ---
PROCEDURE: X-RAY CHEST ONE VIEW, PORTABLE ([id number]) INDICATIONS: sob TECHNIQUE: One view of the chest was acquired. COMPARISON: None. FINDINGS: Surgical changes and devices: None. Lungs and pleura: No pleural effusions or pneumothorax. Lungs are abnormal, with large lung volumes bilaterally consistent with underlying COPD and stable appearance of a mild chronic interstitial pro minence. These findings likely reflect prior smoking history. Mediastinum: Mediastinal contours appear normal. Heart size is normal. Bones and chest wall: No suspicious bony lesions. Overlying soft tissues appear unremarkable. IMPRESSION: Stable in appearance with mild interstitial prominence previously present and large lung volumes, also previously present and consistent with underlying COPD. A source of new shortness of breath, however, is not seen. Dictated by: Michael Perales M.D. on 02/03/2017 at 12:58 Approved by: Michael Perales M.D. on 02/03/2017 at 12:59
[2017-02-03] MEDS: Insulin LISPRO 300 Unit/3 mL Inj SUBQ SCH ×3 (13:41→22:00)
--- NOTE | 2017-02-03 14:20 | PCM.PNMED ---
Subjective Date of Service Feb 03, 2017 Subjective Sam Stevenson is a 61-year-old man with past medical history significant for severe COPD, hypertension, hyperlipidemia and heart failure who presented to the [facility] emergency department today via EMS due to severe shortness of breath started 4 days prior to admission. Patient was seen and examined by me today. He states that he feels much better today. His breathing has certainly improved and is no longer using his accessory muscles to breath. He notes that he did not sleep well last night because he was constantly interrupted and he is a light sleeper. He notes that he wore his BiPap mask for the majority of the night and he feels well now on supplemental oxygen. On ROS, he denies headaches, visual changes, chest pain, nausea, vomiting, abdominal pain, bowel changes. There were no acute events overnight. Exam Vital Signs Vital Sign - Last Date Time Temp Pulse Resp B/P Pulse Ox O2 Delivery O2 Flow Rate FiO2 02/03/17 03:13 36.3 81 21 162/89 96 BiPAP 02/03/17 00:38 30 02/02/17 20:25 3.00 Intake and Output 02/02/17 02/02/17 02/03/17 Cumulative From/Thru 15:00 23:00 07:00 01/30/17 22:25 - 02/03/17 05:46 Intake Total 2378 ml 470 ml 9661 ml Output Total 627 ml 4752 ml Balance 1751 ml 470 ml 4909 ml Intake Oral 1560 ml 4584 ml IV Total 818 ml 470 ml 5077 ml Output Urine Total 625 ml 4750 ml Stool Total 2 ml 2 ml # Bowel Movements 1 5 Exam General: Patient is sitting upright on bed, AAOX3, not in acute distress, cooperative and appropriately interactive HEENT: head normocephalic and atraumatic, PERRLA, EOMI, no scleral icterus, noninjected conjunctiva, Neck: neck supple, non-tender, no lymphadenopathy, trachea midline, no JVD CV: tachycardic with regular rhythm, s1 and s2 heard, radial pulses 2+ and equal bilaterally, no rubs murmurs or gallops, no edema Lungs: Patient on supplemental O2 Via NC, reduced breath sounds bilaterally without wheezes, slight increased work of breathing and no use of accessory muscles, patient is evidently barrel-chested Abdomen: normoactive bowel sounds on 4Q, soft, non-distended, non-tender to palpation, no organomegally, Skin: warm and dry, skin tenting on exam Musculoskeletal: UE and LE strength bilaterally, full ROM bilaterally Neuro: Grossly neurologically intact, cranial nerves II through XII intact, no dyskinesia, dysmetria, or dysdiadochokinesia noted, sensation intact in extremities Psych: Normal mood and affect IVs and Medications Medications Reviewed: Medications were reviewed in detail Lab and Diagnostics Laboratory Tests Test 02/03/17 02:50 White Blood Count 11.7th/mm3 (3.8-10.1) Red Blood Count 4.96mil/mm3 (4.40-5.80) Hemoglobin 15.7g/dL (13.8-17.2) Hematocrit 46.6% (41.0-50.0) Mean Corpuscular Volume 94.0fL (81-100) Mean Corpuscular Hemoglobin 31.7pg (27.0-35.0) Mean Corpuscular Hemoglobin Concent 33.7% (32.0-37.0) Red Cell Distribution Width 14.0% (12.3-15.4) Platelet Count 235bil/L (150-400) Neutrophils (%) (Auto) 93.4% (40-74) Lymphocytes (%) (Auto) 3.8% (14-46) Monocytes (%) (Auto) 2.2% (4-12) Eosinophils (%) (Auto) 0% (0-5) Basophils (%) (Auto) 0.1% (0-3) Sodium Level 137mEq/L (134-144) Potassium Level 4.6mEq/L (3.5-5.2) Chloride Level 94mEq/L (97-108) Carbon Dioxide Level 28mmol/L (18-29) Blood Urea Nitrogen 45mg/dL (8-27) Creatinine 1.35mg/dL (0.76-1.27) Estimat Glomerular Filtration Rate 57mL/min (>59) Glucose Level 202mg/dL (60-99) Lactic Acid Level 1.7mmol/L (0.4-2.0) Calcium Level 8.9mg/dL (8.5-10.1) Total Bilirubin 0.2mg/dL (0.0-1.2) Aspartate Amino Transf (AST/SGOT) 29U/L (0-50) Alanine Aminotransferase (ALT/SGPT) 33U/L (0-44) Alkaline Phosphatase 66U/L (25-160) Total Protein 6.7g/dL (6.4-8.4) Albumin 3.4g/dL (3.4-5.0) Procalcitonin 0.39ng/mL (0.00-0.08) Microbiology 01/30/17 Blood Culture - Preliminary, Resulted No growth at 2 days; culture examined... 02/01/17 Stool Occult Blood (NANNETTE) - Final, Complete 01/31/17 MRSA (PCR) - Final, Complete 02/01/17 Eosinophil Smear (NANNETTE) - Final, Complete 01/31/17 Sputum Quality Screen - Final, Complete 01/31/17 Sputum Culture - Final, Complete SCANT NORMAL BONNIE PRESENT Result Diagram: 02/03/17 0250 02/03/17 0250 Microbiology Postive for Rhinovirus/Enterovirus X-Rays, CTs and MRIs Chest X-Ray IMPRESSION: The concern for possible right upper lobe lung mass near the apex from chest plain films performed at 20:22 last evening has been resolved, no evidence for lung mass in the area that had been superimposed upon by a breathing assist device in that area. Chronic interstitial prominence, no definite acute disease. Dictated by: Michael Perales M.D. on 01/31/2017 at 12:53 Chest X-Ray IMPRESSION: Severe COPD, possible malignant mass right upper lobe versus focal pneumonia in that area. It is possible that this represents result of superimposition of the external structure and right upper lung interstitial prominence but followup PA and lateral chest plain films are recommended to determine whether a true mass lesion could be present in that area. Findings discussed this morning with the emergency room physician covering for the prior emergency room physician, and followup chest plain films are anticipated. CT may become necessary. Dictated by: Michael Perales M.D. on 01/31/2017 at 9:23 PROCEDURE: US RENAL WITH ARTERIES DUPLEX DOPPLER SONOGRAM, LIMITED IMPRESSION: 1. Elevated velocities within the proximal to mid right renal artery with elevated velocities in aortic ratios suggesting greater than 60% right renal artery stenosis. 2. Left renal artery obscured by overlying bowel gas. 12-lead ECG Sinus tachycardia, possible left atrial enlargement, left ventricular hypertrophy Additional Diagnostics DateTimeAnalyzed 22:32:20 -_ pH ____7.154 - 7.350 7.450 pCO2 ___76.5__ -mmHg 35.0 45.0 pO2 210 -mmHg 80.0 100 HCO3- ___26.9__ -mmol/L 22.0 26.0 ABE ___-3.1__ -mmol/L -2.0 2.0 tHb ___17.3__ -g/dL 12.0 18.0 O2Hb ___94.6__ -% COHb ____5.5__ -% 1.5 MetHb ____0.0__ -% 0.4 1.5 sO2 __100.0__ -% 95.0 Assessment & Plan Sam Stevenson is a 61-year-old man with past medical history significant for severe COPD, hypertension, hyperlipidemia and heart failure who presented to the [facility] emergency department today via EMS due to severe shortness of breath started 4 days prior to admission. Hospital Day 5 Acute hypercapnic respiratory failure secondary to COPD exacerbation, present on admission, active -Secondary to viral and likely community acquired pneumonia -We have obtained Legionella antigen, strep pneumo antigen, respiratory viral PCR, blood cultures, sputum cultures. - Respiratory PCR was positive for rhinovirus/enterovirus -Patient was treated presumably as severe community acquired pneumonia with Levaquin and Zosyn. Patient has already received 1 dose of vancomycin. MRSA swab negative. Discontinue vancomycin -Discontinue Levaquin and Zosyn and switch to Azithromycin 500 mg daily and ceftriaxone 2 g q12 per recommendations of CCU team for bacterial infection, likely be a community-acquired pneumonia. -Repeat ABG significantly improved -CXR shows Severe COPD, possible malignant mass right upper lobe versus focal pneumonia in that area.Repeat CXR shows that mass in Right upper lobe from prior CXR was merely artifact -Continue BiPAP, will wean down IPAP as patient is able to tolerate. Patient starts to decompensate when off the BiPAP for several hours. -At this point patient has improved and there does not seem to be an imminent threat of intubation however patient is agreeable with intubation should it be necessary. -DuoNeb every 6 hrs while awake, albuterol every 2 when necessary shortness of breath -Solu-Medrol 125 mg was given q6 but we have titrate to 80 mg every 8 hours IV while patient is in severe respiratory distress, may be titrated to by mouth medication once his respiratory status improves. -Discontinued Solu-Medrol and Started 40 mg prednisone po daily -02/02/17 Per recommendations of Pulmonology, Solu-Medrol 60mg Q6h and Theophylline 300mg BID -Patient was also started on IV Fentanyl to help with air hunger and to help patient tolerate BiPAP at night, at least until his resp status is more improved -Pulmonology believes that patient will require a few more days of inpatient as his respiratory function continues to improve. -PT and RT eval. -02/03/17 Patient and met with [employer] fraud representative. Patient will likely be discharged with [facility] and Supplemental Oxygen given his current needs Sepsis, present on admission, active -Leukocytosis, tachycardia, acute renal failure, mild hyperlactatemia with viral and likely bacterial pneumonia as source -We will continue to treat with antibiotics as above. -02/01/17 WBC increased to 19.6 Procalcitonin decreased to 1.16 -Leukocytosis may also be secondary to steroids -Recheck lactic acid shows that this has normalized -Gentle rehydration was initiated given patient's history of CHF with uncertain EF. Patient not currently on IVF Acute kidney injury, present on admission, active -Most recent baseline available is a creatinine of 0.88 in 2016. -Likely prerenal azotemia given patient's dehydration on exam. -IVF was given, recheck BMP in the morning -Avoid nephrotoxic medications -Consult nephrology, Dr. Vázquez. We appreciate her recommendations -Patient is found to have an atrophic left kidney and right renal artery stenosis -02/02- Patient received NS 40 ml/hr for another 500 ml. -02/03 - Kidney function improved -Per Dr. Vázquez, patient can follow up with her as an outpatient in several weeks for further work up of likely renal artery stenosis Hypertension -Blood pressure elevated -Per recommendations of nephro, increase amlodipine to 10 mg daily, labetolol 300 mg bid -Continue to monitor Mild hyperkalemia, present on admission, resolved -Potassium on admit was 5.6. Decreased to 4.3 Hyperglycemia secondary to steroid use -Every 6 Accu-Chek -Initiated insulin correctional scale as the patient's blood glucose continues to be above 180 -Hgb A1C 6.0% puts patient at pre-diabetic range Tobacco use -Nicotine patch offered Chronic issues: History of Congestive heart failure, uncertain type, not in exacerbation -[facility] Hyperlipidemia -Continue statin CODE STATUS: Full code Disposition: Patient's respiratory status has been improving but he continues to receive treatment for acute hypercapnic respiratory failure secondary to COPD exacerbation. We will continue with current antibiotic regimen. Continue with Duonebs q6hrs while awake, albuterol q2 hrs prn and methylprednisolone. Attempt to wean off steroids. Patient likely to remain inpatient for at least 2 more days per recommendations of facility attendant. Pain Evaluation: Adequate Pain Control VTE Prophylaxis: Sub-Q Heparin (Unfractionated) VTE Mechanical Devices: Intermittant Pneumatic CD Resuscitation Status: CPR: Attempt Resuscitation Attending Statement The patient was seen and examined together with Dr. Mcallister on 02/03/2017 and I agree with the history, exam and plan as outlined in the note above. . Ashley Mcallister DO Feb 03, 2017 06:45 Sam Castro MD Feb 04, 2017 09:19
--- NOTE | 2017-02-03 14:42 | PCM.PNMED ---
Subjective Date of Service Feb 03, 2017 Subjective Patient continues to have severe shortness of breath while off BiPAP. It is remarkable that he can speak in short sentences. He continues to require significant BiPAP support. Exam Vital Signs Vital Sign - Last Date Time Temp Pulse Resp B/P Pulse Ox O2 Delivery O2 Flow Rate FiO2 02/03/17 08:40 Supplement Oxygen CPAP/BIPAP 02/03/17 08:34 36.3 88 22 201/108 97 3.00 02/03/17 00:38 30 Intake and Output 02/02/17 02/02/17 02/03/17 Cumulative From/Thru 15:00 23:00 07:00 01/30/17 22:25 - 02/03/17 06:45 Intake Total 2378 ml 1170 ml 43053 ml Output Total 627 ml 880 ml 5632 ml Balance 1751 ml 290 ml 4729 ml Intake Oral 1560 ml 700 ml 5284 ml IV Total 818 ml 470 ml 5077 ml Output Urine Total 625 ml 880 ml 5630 ml Stool Total 2 ml 2 ml # Bowel Movements 1 5 Exam General: Alert, Oriented X3, Cooperative, Mild respiratory distress while on NC Head: Normocephalic, atraumatic. External ears normal. Eyes: PERRLA, EOMI. Anicteric sclerae. Mouth: Mouth normal, Mucous membranes moist/pink, no thrush noted Neck: Neck supple with full range of motion. No JVD noted Chest& Lungs: Large barrel chested with mild pectus excavatum with moderate thoracic kyphosis. Distant breath sounds with persistent wheezing and rhonchi. Cardiovascular: Regular rate/rhythm, Normal S1, Normal S2, No murmurs/rubs/ gallops Abdomen: Non-tender, Non-distended, No masses, Normoactive bowel tones, Soft Musculoskeletal: WAGNER, no swollen or tender joints Extremities: No cyanosis/clubbing/edema bilaterally Skin: Warm, Dry, intact, no rashes noted. Neurological: Grossly neurologically intact. No focal weakness. Positive mood and affect. IVs and Medications Medications Reviewed: Medications were reviewed in detail Lab and Diagnostics Result Diagram: 02/03/17 0250 02/03/17 0250 Microbiology Postive for Rhinovirus/Enterovirus X-Rays, CTs and MRIs Chest X-Ray IMPRESSION: The concern for possible right upper lobe lung mass near the apex from chest plain films performed at 20:22 last evening has been resolved, no evidence for lung mass in the area that had been superimposed upon by a breathing assist device in that area. Chronic interstitial prominence, no definite acute disease. Dictated by: Michael Perales M.D. on 01/31/2017 at 12:53 Chest X-Ray IMPRESSION: Severe COPD, possible malignant mass right upper lobe versus focal pneumonia in that area. It is possible that this represents result of superimposition of the external structure and right upper lung interstitial prominence but followup PA and lateral chest plain films are recommended to determine whether a true mass lesion could be present in that area. Findings discussed this morning with the emergency room physician covering for the prior emergency room physician, and followup chest plain films are anticipated. CT may become necessary. Dictated by: Michael Perales M.D. on 01/31/2017 at 9:23 PROCEDURE: US RENAL WITH ARTERIES DUPLEX DOPPLER SONOGRAM, LIMITED IMPRESSION: 1. Elevated velocities within the proximal to mid right renal artery with elevated velocities in aortic ratios suggesting greater than 60% right renal artery stenosis. 2. Left renal artery obscured by overlying bowel gas. 12-lead ECG Sinus tachycardia, possible left atrial enlargement, left ventricular hypertrophy Additional Diagnostics DateTimeAnalyzed 22:32:20 -_ pH ____7.154 - 7.350 7.450 pCO2 ___76.5__ -mmHg 35.0 45.0 pO2 210 -mmHg 80.0 100 HCO3- ___26.9__ -mmol/L 22.0 26.0 ABE ___-3.1__ -mmol/L -2.0 2.0 tHb ___17.3__ -g/dL 12.0 18.0 O2Hb ___94.6__ -% COHb ____5.5__ -% 1.5 MetHb ____0.0__ -% 0.4 1.5 sO2 __100.0__ -% 95.0 Assessment & Plan Sam Stevenson is a 61-year-old man with past medical history significant for severe COPD, hypertension, hyperlipidemia and heart failure who presented to the [facility] emergency department today via EMS due to severe shortness of breath started 4 days prior to admission. Hospital Day 5 Acute hypercapnic respiratory failure secondary to COPD exacerbation, present on admission, active - Respiratory PCR was positive for rhinovirus/enterovirus -DuoNeb every 6 hrs while awake, albuterol every 2 when necessary shortness of breath -Patient was also started on IV Fentanyl to help with air hunger and to help patient tolerate BiPAP at night, at least until his resp status is more improved -Pulmonology believes that patient will require a few more days of inpatient as his respiratory function continues to improve. -PT and RT eval. -Patient and met with [employer] sales development representative. Be careful discharging too soon. Patient should be stable off any positive pressure prior to discharge. He has very severe COPD. Continue Solu-Medrol 60mg Q6h and Theophylline 300mg BID. Sepsis, present on admission, active Fluids and antibiotics. Acute kidney injury, present on admission, active -Most recent baseline available is a creatinine of 0.88 in 2016. -Likely prerenal azotemia given patient's dehydration on exam. -IVF was given, recheck BMP in the morning -Avoid nephrotoxic medications -Consult nephrology, Dr. Vázquez. We appreciate her recommendations -Patient is found to have an atrophic left kidney and right renal artery stenosis -02/02- Patient received NS 40 ml/hr for another 500 ml. -02/03 - Kidney function improved -Per Dr. Vázquez, patient can follow up with her as an outpatient in several weeks for further work up of likely renal artery stenosis Hypertension -Blood pressure elevated -Per recommendations of nephro, increase amlodipine to 10 mg daily, labetolol 300 mg bid -Continue to monitor Hyperglycemia secondary to steroid use -Every 6 Accu-Chek -Initiated insulin correctional scale as the patient's blood glucose continues to be above 180 -Hgb A1C 6.0% puts patient at pre-diabetic range Tobacco use -Nicotine patch offered Chronic issues: History of Congestive heart failure, uncertain type, not in exacerbation -Requested records from [place] regarding most recent echocardiogram Hyperlipidemia -Continue statin CODE STATUS: Full code Disposition: Patient's respiratory status has been improving but he continues to receive treatment for acute hypercapnic respiratory failure secondary to COPD exacerbation. We will continue with current antibiotic regimen. Continue with Duonebs q6hrs while awake, albuterol q2 hrs prn and methylprednisolone. Attempt to wean off steroids. Patient likely to remain inpatient for at least 2 more days per recommendations of wire straightener. VTE Prophylaxis: Sub-Q Heparin (Unfractionated) VTE Mechanical Devices: Intermittant Pneumatic CD Resuscitation Status: CPR: Attempt Resuscitation Time spent CPT [id number] Johnathan Dallas MD Feb 03, 2017 14:42
[2017-02-03] MEDS ORDERED: .Epic Conversion Completed XX PRN (17:05)
--- NOTE | 2017-02-03 17:59 | NUR ---
Resp/Activity Patient a/o x 4, c/o back pain but declined pain meds this shift. Patient oob indep in room and showered this afternoon. Lungs course genesis suero tx given scheduled per RTC. [facility] set up this evening for patient to trial. SBP 150-200's, notified and new orders written.
[2017-02-03] MEDS: fentaNYL-PF 50 mCg/mL 2 mL Inj IVPUSH PRN (22:15)
--- NOTE | 2017-02-03 23:08 | NUR ---
Respiratory/Rest Patient maintaining SpO2 92-94% on 3L via nasal cannula at rest. Reports feeling much better than he did yesterday. Diminished breath sounds throughout with faint expiratory wheezes. [facility] at bedside, patient states he feels comfortable putting it on himself when he is ready to sleep. 50 mcg of fentanyl given per orders for air hunger and anxiety overnight. Patient resting comfortably in bed.
== END 2017-02-04 01:24 | disposition admitted as inpatient to this hospital (09) | DRG 951 ==
LOC: EDBD 22:23 → SED 22:23 → CCU 23:37 → PCC 02-01 09:44
PROVIDERS: ADMIT Internal Medicine; ATTEND Internal Medicine
DX: R69 Illness, unspecified (principal)